=== PATIENT | male | born 1955 ===

== ENCOUNTER 2017-05-02 22:36 | Inpatient (IN) | payer OTHER ==
--- NOTE | 2017-05-02 22:41 | C.PDOC ---
History Of Present Illness Patient presents to the ER after having chest pressure pain while driving STABLE HAND. Denies SOB, nausea, or vomiting. 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 History/Exam Limitations: no limitations Onset/Duration Of Symptoms: Hrs Current Symptoms Are (Timing): Still Present Severity: Moderate Pain Scale Rating Of: 4 Quality: Pressure Associated Symptoms: denies: Nausea, Dyspnea Modifying Factors: None Exacerbating Factors: None Alleviating Factors: None Recent travel outside of the [place]: No Past Medical History Reviewed: Historical Data, Nursing Documentation, Vital Signs Vital Signs: Last Vital Signs Temp 97.8 F 05/02/17 23:00 Pulse 85 05/02/17 23:00 Resp 23 05/02/17 23:00 BP 150/90 05/02/17 23:00 Pulse Ox 97 05/03/17 00:38 - Medical History PMH: CAD, Hypercholesterolemia Surgical History: CABG - [facility] Procedures CORONAR ARTERIOGR-2 CATH (01/01/14) LEFT HEART CARDIAC CATH (01/01/14) LT HEART ANGIOCARDIOGRAM (01/01/14) Family History: States: No Known Family Hx - Social History Hx Tobacco Use: Yes (stop 1 wk ago due to SOB and pain) Hx Alcohol Use: No Hx Substance Use: No Review Of Systems Constitutional: Negative for: Fever, Chills Eyes: Negative for: Redness ENT: Negative for: Throat Pain Cardiovascular: Positive for: Chest Pain Respiratory: Negative for: Shortness of Breath Gastrointestinal: Negative for: Nausea, Vomiting Genitourinary: Negative for: Dysuria Musculoskeletal: Negative for: Back Pain Skin: Negative for: Rash Neurological: Negative for: Weakness Psych: Negative for: Anxiety Physical Exam - Physical Exam Appears: Non-toxic Skin: Warm, Dry Head: Normacephalic Eye(s): bilateral: Normal Inspection Oral Mucosa: Moist Neck: Trachea Midline, Supple Chest: No Tenderness, Other (CABG scar on mid chest) Cardiovascular: Rhythm Regular, No Murmur Respiratory: No Rales, No Rhonchi, No Wheezing Gastrointestinal/Abdominal: Soft, No Tenderness Back: No CVA Tenderness Extremity: Normal ROM Extremity: Bilateral: Atraumatic, Normal Color And Temperature Pulses: Left Dorsalis Pedis: Normal, Right Dorsalis Pedis: Normal Neurological/Psych: Oriented x3, Normal Speech, Normal Cognition Gait: Steady ED Course And Treatment - Laboratory Results Result Diagrams: 05/02/17 22:56 05/02/17 22:56 ECG: Interpreted By Me, Viewed By Me ECG Rhythm: Sinus Rhythm (87), Nonspecific Changes O2 Sat by Pulse Oximetry: 97 Pulse Ox Interpretation: Normal - Radiology CXR: Interpreted by Me, Viewed By Me CXR Interpretation: Yes: Other (cabg). No: Infiltrates, Fracture, Pnemothorax Progress Note: cardiac work up, asa Disposition Discussed With Dr.: Roberta Rodriguez Comment: accepted the pt on his service and took over the care at 12:48 AM Doctor Will See Patient In The: Hospital Counseled Patient/Family Regarding: Studies Performed, Diagnosis - Disposition Disposition: HOSPITALIZED Disposition Time: 22:41 Condition: FAIR - POA Present On Arrival: Poor Glycemic Control - Clinical Impression Clinical Impression: Chest pain - Scribe Statement The provider has reviewed the documentation as recorded by the Scribe Ricardo Stratton All medical record entries made by the Scribe were at my direction and personally dictated by me. I have reviewed the chart and agree that the record accurately reflects my personal performance of the history, physical exam, medical decision making, and the department course for this patient. I have also personally directed, reviewed, and agree with the discharge instructions and disposition. Decision To Admit - Pt Status Changed To: Hospital Disposition Of: Inpatient - Admit Certification Admit to Inpatient:: After my assessment, the patient will require hospitalization for at least two midnights. This is because of the severity of symptoms shown, intensity of services needed, and/or the medical risk in this patient being treated as an outpatient. - InPatient: Physician Admission Certification: I certify that this patient requires 2 or more midnights of care for the following reason:: After my assessment, the patient will require hospitalization for at least two midnights. This is because of the severity of symptoms shown, intensity of services needed, and/or the medical risk in this patient being treated as an outpatient. - . Bed Request Type: Telemetry Admitting Physician: Roberta Rodriguez Patient Diagnosis: Chest pain
[2017-05-02] MEDS ORDERED: Aspirin 325 mg EC Tablets PO STA (22:46)
[2017-05-02] MEDS ORDERED: Aspirin 325 mg EC Tablets PO ONE (22:59)
[2017-05-02 23:02] VITALS: BMI 34.9
[2017-05-02 23:02] LABS: BASO % 0.8 % (0.0-2.0); EOS # 0.2 K/uL (0.0-0.7); EOS % 2.7 % (0.0-4.0); HEMOGLOBIN 14.1 g/dL (12.0-18.0); LYMPH # 3.1 K/uL (1.0-4.3); LYMPH % 50.3 % (20.0-40.0); MEAN CELL VOLUME 83.4 fL (80.0-94.0); MEAN CORPUSCULAR HEMOGLOBIN 28.5 pg (27.0-31.0); MEAN CORPUSCULAR HGB CONC 34.1 g/dL (33.0-37.0); MEAN PLATELET VOLUME 8.4 fL (7.2-11.7); MONO # 0.4 K/uL (0.0-0.8); MONO % 6.8 % (0.0-10.0); NEUT # 2.4 K/uL (1.8-7.0); NEUT % 39.4 % (50.0-75.0); RBC 4.94 Mil/uL (4.40-5.90); RED CELL DISTRIBUTION WIDTH 13.3 % (11.5-14.5); WHITE BLOOD COUNT 6.1 K/uL (4.8-10.8)
[2017-05-02 23:07] LABS: ALBUMIN 3.8 g/dL (3.5-5.0)
[2017-05-02 23:08] LABS: INR 1.1; PROTHROMBIN TIME 12.8 SECONDS (9.7-12.2)
[2017-05-02 23:10] LABS: ALB/GLOB RATIO 1.2 (1.0-2.1); AST/SGOT 21 U/L (17-59); BLOOD UREA NITROGEN 14 mg/dL (9-20); GFR AFRICAN-AMERICAN > 60; GFR NON-AFRICAN AMERICAN > 60
[2017-05-02 23:11] LABS: ALT/SGPT 32 U/L (21-72); CALCIUM 9.4 mg/dl (8.6-10.4)
[2017-05-02 23:19] LABS: B-TYPE NATRIURETIC PEPTIDE 49.6 pg/mL (0-900)
[2017-05-03 08:47] LABS: CK-MB 1.11 ng/mL (0.0-3.38)
[2017-05-03] MEDS: Enoxaparin 40 mg Syringe SC SCH (09:38)
[2017-05-03] MEDS: Pantoprazole 40 mg EC Tab PO SCH (09:38)
[2017-05-03] MEDS ORDERED: LISINOPRIL 2.5 MG PO SCH (10:00)
--- NOTE | 2017-05-03 10:53 | RAD ---
PROCEDURE: CHEST RADIOGRAPH, 1 VIEW HISTORY: Chest pain COMPARISON: 12/31/2013 FINDINGS: LUNGS: There is mild pulmonary venous congestion. PLEURA: No pneumothorax or pleural fluid seen. CARDIOVASCULAR: The heart is normal in size. Status post CABG. OSSEOUS STRUCTURES: No significant abnormalities. VISUALIZED UPPER ABDOMEN: Normal. OTHER FINDINGS: None. IMPRESSION: No active pulmonary disease.
--- NOTE | 2017-05-03 12:38 | CP.PCM.HP ---
Past Patient History - Past Medical History & Family History Past Medical History?: Yes - Past Social History Smoking Status: Current Some Days Smoker - CARDIAC Hx Cardiac Disorders: Yes Hx Hypercholesterolemia: Yes Hx Hypertension: Yes Other/Comment: Open Heart Surgery; Valve Replacement; Coronary artery bypass graft; Cardiac Cath. - PULMONARY Hx Respiratory Disorders: No - NEUROLOGICAL Hx Neurological Disorder: No - HEENT Hx HEENT Problems: No - RENAL Hx Chronic Kidney Disease: No - ENDOCRINE/METABOLIC Hx Endocrine Disorders: Yes Hx Diabetes Mellitus Type 1: Yes - HEMATOLOGICAL/ONCOLOGICAL Hx Blood Disorders: No - INTEGUMENTARY Hx Dermatological Problems: No - MUSCULOSKELETAL/RHEUMATOLOGICAL Hx Musculoskeletal Disorders: No Hx Falls: No - GASTROINTESTINAL Other/Comment: Unintended Weight Loss - GENITOURINARY/GYNECOLOGICAL Hx Genitourinary Disorders: No - PSYCHIATRIC Hx Psychophysiologic Disorder: No Hx Substance Use: No - SURGICAL HISTORY Hx Surgeries: Yes Hx Cardiac Catheterization: Yes Hx Coronary Artery Bypass Graft: Yes Hx Open Heart Surgery: Yes Hx Valve Replacement: Yes - ANESTHESIA Hx Anesthesia: Yes Hx Anesthesia Reactions: No Hx Malignant Hyperthermia: No Meds Allergies/Adverse Reactions: Allergies Allergy/AdvReac Type Severity Reaction Status Date / Time No Known Allergies Allergy Verified 05/02/17 23:05 Physical Exam - Constitutional Appears: Well - Head Exam Head Exam: ATRAUMATIC, NORMAL INSPECTION, NORMOCEPHALIC - Eye Exam Eye Exam: EOMI, Normal appearance, PERRL Pupil Exam: NORMAL ACCOMODATION, PERRL - ENT Exam ENT Exam: Mucous Membranes Moist, Normal Exam - Neck Exam Neck exam: Positive for: Normal Inspection - Respiratory Exam Respiratory Exam: Decreased Breath Sounds - Cardiovascular Exam Cardiovascular Exam: REGULAR RHYTHM, +S1, +S2 - GI/Abdominal Exam GI & Abdominal Exam: Diminished Bowel Sounds, Soft - Rectal Exam Rectal Exam: Deferred Results - Vital Signs Recent Vital Signs: Last Vital Signs Temp 98.2 F 05/03/17 09:03 Pulse 72 05/03/17 09:03 Resp 20 05/03/17 09:03 BP 124/69 05/03/17 09:03 Pulse Ox 96 05/03/17 09:03 - Labs Result Diagrams: 05/02/17 22:56 05/02/17 22:56 Labs: Laboratory Results - last 24 hr 05/03/17 05/03/17 07:59 11:50 POC Glucose (mg/dL) 114 H Total Creatine Kinase 107 CK-MB (Mass) 1.11 Troponin I, Quant < 0.0120
[2017-05-03 18:43] LABS: URINE BILIRUBIN NEGATIVE (NEGATIVE); URINE BLOOD 1+ (NEGATIVE); URINE CLARITY Clear (Clear); URINE COLOR Straw (YELLOW); URINE GLUCOSE (UA) NORMAL (Normal); URINE LEUKOCYTE ESTERASE NEG Leu/uL (Negative); URINE NITRATE NEGATIVE (NEGATIVE); URINE PROTEIN NEGATIVE (NEGATIVE); URINE UROBILINOGEN NORMAL mg/dL (0.2-1.0)
--- NOTE | 2017-05-03 22:53 | CP.PCM.CON ---
Past Patient History - Past Medical History & Family History Past Medical History?: Yes - Past Social History Smoking Status: Current Some Days Smoker - CARDIAC Hx Cardiac Disorders: Yes Hx Hypercholesterolemia: Yes Hx Hypertension: Yes Other/Comment: Open Heart Surgery; Valve Replacement; Coronary artery bypass graft; Cardiac Cath. - PULMONARY Hx Respiratory Disorders: No - NEUROLOGICAL Hx Neurological Disorder: No - HEENT Hx HEENT Problems: No - RENAL Hx Chronic Kidney Disease: No - ENDOCRINE/METABOLIC Hx Endocrine Disorders: Yes Hx Diabetes Mellitus Type 1: Yes - HEMATOLOGICAL/ONCOLOGICAL Hx Blood Disorders: No - INTEGUMENTARY Hx Dermatological Problems: No - MUSCULOSKELETAL/RHEUMATOLOGICAL Hx Musculoskeletal Disorders: No Hx Falls: No - GASTROINTESTINAL Other/Comment: Unintended Weight Loss - GENITOURINARY/GYNECOLOGICAL Hx Genitourinary Disorders: No - PSYCHIATRIC Hx Psychophysiologic Disorder: No Hx Substance Use: No - SURGICAL HISTORY Hx Surgeries: Yes Hx Cardiac Catheterization: Yes Hx Coronary Artery Bypass Graft: Yes Hx Open Heart Surgery: Yes Hx Valve Replacement: Yes - ANESTHESIA Hx Anesthesia: Yes Hx Anesthesia Reactions: No Hx Malignant Hyperthermia: No Meds Allergies/Adverse Reactions: Allergies Allergy/AdvReac Type Severity Reaction Status Date / Time No Known Allergies Allergy Verified 05/02/17 23:05 - Medications Medications: Current Medications Aspirin (Aspirin Chewable) 81 mg PO DAILY [facility] Last Admin: 05/03/17 10:45 Dose: 81 mg Clopidogrel Bisulfate (Plavix) 75 mg PO DAILY [facility] Last Admin: 05/03/17 09:38 Dose: 75 mg Enoxaparin Sodium (Lovenox) 40 mg SC DAILY [facility] Last Admin: 05/03/17 09:38 Dose: 40 mg Lisinopril (Zestril) 2.5 mg PO DAILY [facility] Last Admin: 05/03/17 10:45 Dose: 2.5 mg Pantoprazole Sodium (Protonix Ec Tab) 40 mg PO DAILY [facility] Last Admin: 05/03/17 09:38 Dose: 40 mg Rosuvastatin Calcium (Crestor) 10 mg PO HS [facility] Last Admin: 05/03/17 21:41 Dose: 10 mg Results - Vital Signs Recent Vital Signs: Last Vital Signs Temp 97.7 F 05/03/17 17:36 Pulse 77 05/03/17 17:36 Resp 20 05/03/17 17:36 BP 149/82 05/03/17 17:36 Pulse Ox 97 05/03/17 17:36 - Labs Result Diagrams: 05/02/17 22:56 05/02/17 22:56 Labs: Laboratory Results - last 24 hr 05/03/17 05/03/17 05/03/17 07:59 11:50 16:54 POC Glucose (mg/dL) 114 H 122 H Total Creatine Kinase 107 CK-MB (Mass) 1.11 Troponin I, Quant < 0.0120 Urine Color Urine Clarity Urine pH Ur Specific [place] Urine Protein Urine Glucose (UA) Urine Ketones Urine Blood Urine Nitrate Urine Bilirubin Urine Urobilinogen Ur Leukocyte Esterase Urine WBC (Auto) Urine RBC (Auto) 05/03/17 05/03/17 05/03/17 17:23 18:35 21:48 POC Glucose (mg/dL) 138 H Total Creatine Kinase 80 CK-MB (Mass) 0.80 Troponin I, Quant < 0.0120 Urine Color Straw Urine Clarity Clear Urine pH 6.0 Ur Specific [place] 1.006 Urine Protein Negative Urine Glucose (UA) Normal Urine Ketones Negative Urine Blood 1+ H Urine Nitrate Negative Urine Bilirubin Negative Urine Urobilinogen Normal Ur Leukocyte Esterase Neg Urine WBC (Auto) < 1 Urine RBC (Auto) < 1
[2017-05-04 07:32] LABS: CK-MB 0.82 ng/mL (0.0-3.38)
[2017-05-04 08:20] VITALS: PULSE 68
[2017-05-04] MEDS: Enoxaparin 40 mg Syringe SC SCH (09:10)
[2017-05-04] MEDS: Pantoprazole 40 mg EC Tab PO SCH (09:10)
--- NOTE | 2017-05-04 10:26 | CP.PCM.PN ---
Subjective - Date & Time of Evaluation Date of Evaluation: 05/04/17 Time of Evaluation: 10:25 Objective - Vital Signs/Intake and Output Vital Signs (last 24 hours): Temp Pulse Resp BP Pulse Ox 97.8 F 68 20 129/76 97 05/04/17 07:18 05/04/17 07:18 05/04/17 07:18 05/04/17 07:18 05/04/17 07:18 Intake and Output: 05/04/17 05/04/17 06:59 18:59 Intake Total 0 Balance 0 - Medications Medications: Current Medications Aspirin (Aspirin Chewable) 81 mg PO DAILY [facility] Last Admin: 05/04/17 09:10 Dose: 81 mg Clopidogrel Bisulfate (Plavix) 75 mg PO DAILY [facility] Last Admin: 05/04/17 09:10 Dose: 75 mg Enoxaparin Sodium (Lovenox) 40 mg SC DAILY [facility] Last Admin: 05/04/17 09:10 Dose: 40 mg Lisinopril (Zestril) 2.5 mg PO DAILY [facility] Last Admin: 05/04/17 09:10 Dose: 2.5 mg Pantoprazole Sodium (Protonix Ec Tab) 40 mg PO DAILY [facility] Last Admin: 05/04/17 09:10 Dose: 40 mg Rosuvastatin Calcium (Crestor) 10 mg PO HS [facility] Last Admin: 05/03/17 21:41 Dose: 10 mg - Labs Labs: PT 12.8 SECONDS (9.7-12.2) H 05/02/17 22:56 INR 1.1 05/02/17 22:56 APTT 33 SECONDS (21-34) 05/02/17 22:56
[2017-05-04 16:05] VITALS: BP 122/70; RESP 18; TEMP 97.6; O2SAT 99
--- NOTE | 2017-05-04 16:55 | CP.PCM.PN ---
Subjective - Date & Time of Evaluation Date of Evaluation: 05/04/17 Time of Evaluation: 16:55 - Subjective Subjective: PT SEEN B YDR. Enrrique ANGUIANO AND CLEARED FOR D/C HOME TODAY. 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 JANE WHO RECOMMENDS AN OUTPATIENT CARDIAC CATH TO BE DONE, BUT OF TODAY PT CAN GO HOME. 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 DENISE Peña) IN [place] AT 1000AM. DISCUSSED ALL MEDS, D/C AND F/U INFO WITH PT AT LENGTH AND WITH THE USE OF THE TRANSLATION COMPUTER SYSTEM (KAITARA TARAKA [employer] [facility]). FAMILY TO P/U PT. NO FURTHER ORDERS. Objective - Vital Signs/Intake and Output Vital Signs (last 24 hours): Temp Pulse Resp BP Pulse Ox 97.6 F 68 18 122/70 99 05/04/17 15:45 05/04/17 15:45 05/04/17 15:45 05/04/17 15:45 05/04/17 15:45 Intake and Output: 05/04/17 05/04/17 06:59 18:59 Intake Total 0 350 Balance 0 350 - Medications Medications: Current Medications Aspirin (Aspirin Chewable) 81 mg PO DAILY [facility] Last Admin: 05/04/17 09:10 Dose: 81 mg Clopidogrel Bisulfate (Plavix) 75 mg PO DAILY [facility] Last Admin: 05/04/17 09:10 Dose: 75 mg Enoxaparin Sodium (Lovenox) 40 mg SC DAILY [facility] Last Admin: 05/04/17 09:10 Dose: 40 mg Lisinopril (Zestril) 2.5 mg PO DAILY [facility] Last Admin: 05/04/17 09:10 Dose: 2.5 mg Pantoprazole Sodium (Protonix Ec Tab) 40 mg PO DAILY [facility] Last Admin: 05/04/17 09:10 Dose: 40 mg Rosuvastatin Calcium (Crestor) 10 mg PO HS [facility] Last Admin: 05/03/17 21:41 Dose: 10 mg - Labs Labs: PT 12.8 SECONDS (9.7-12.2) H 05/02/17 22:56 INR 1.1 05/02/17 22:56 APTT 33 SECONDS (21-34) 05/02/17 22:56
--- NOTE | 2017-05-04 18:29 | CP.PCM.PN ---
Subjective - Date & Time of Evaluation Date of Evaluation: 05/04/17 Time of Evaluation: 13:00 - Subjective Subjective: clinically same Objective - Vital Signs/Intake and Output Vital Signs (last 24 hours): Temp Pulse Resp BP Pulse Ox 97.6 F 68 18 122/70 99 05/04/17 15:45 05/04/17 15:45 05/04/17 15:45 05/04/17 15:45 05/04/17 15:45 Intake and Output: 05/04/17 05/04/17 06:59 18:59 Intake Total 0 350 Balance 0 350 - Labs Labs: PT 12.8 SECONDS (9.7-12.2) H 05/02/17 22:56 INR 1.1 05/02/17 22:56 APTT 33 SECONDS (21-34) 05/02/17 22:56 - Constitutional Appears: Well - Head Exam Head Exam: ATRAUMATIC, NORMAL INSPECTION, NORMOCEPHALIC - Eye Exam Eye Exam: EOMI, Normal appearance, PERRL Pupil Exam: NORMAL ACCOMODATION, PERRL - ENT Exam ENT Exam: Mucous Membranes Moist, Normal Exam - Neck Exam Neck Exam: Full ROM, Normal Inspection. absent: Lymphadenopathy - Respiratory Exam Respiratory Exam: Decreased Breath Sounds - Cardiovascular Exam Cardiovascular Exam: REGULAR RHYTHM, +S1, +S2 - GI/Abdominal Exam GI & Abdominal Exam: Soft, Diminished Bowel Sounds - Rectal Exam Rectal Exam: Deferred
--- NOTE | 2017-05-05 10:05 | CARD ---
APPROVED REPORT EXAM: Two-dimensional and M-mode echocardiogram with Doppler and color Doppler. Other Information Quality : GoodRhythm : NSR INDICATION Chest Pain Surgery/Intervention CABG: RISK FACTORS Hypertension Diabetes M-Mode DIMENSIONS RVDd1.44 (2.1-3.2cm)Left Atrium (MM)5.27 (2.5-4.0cm) IVSd0.96 (0.7-1.1cm)Aortic Root2.80 (2.2-3.7cm) LVDd5.35 (4.0-5.6cm)Aortic Cusp Exc.1.95 (1.5-2.0cm) PWd1.07 (0.7-1.1cm)FS (%) 36 % LVDs3.43 (2.0-3.8cm)LVEF (%)65 (>50%) Aortic Valve AoV Peak Kvcljjjn655.7cm/Sherice Peak GR.5mmHg Mitral Valve MV E Xbluxqpd51.0cm/sMV A Ywjzoykc85.6cm/sE/A ratio0.9 TDI E/Lateral E'0.0E/Medial E'0.0 Tricuspid Valve TR Peak [id number]/sTR Peak Gr.[id number] <Conclusion> Left ventricle: thickness: normal; size: normal; overall ejection fraction: 65%: diastolic filling pressures: normal Mitral valve: annulus: normal: leaflets: normal: excursion: normal; no significant trans-mitral gradient: no significant incompetence: left atrium: dilated Aortic valve: leaflets: mild calcific thickening: excursion: normal; no significant trans-aortic gradient: No significant incompetence: aortic root: normal Right sided Structures: Pulmonary valve: normal; no significant incompetence; Tricuspid valve: normal;mild incompetence: Intra-cardiac hemodynamics: pulmonary systolic pressures:32 mmHg; central venous pressures: normal No pericardial effusion
--- NOTE | 2017-05-05 10:09 | CARD ---
APPROVED REPORT Protocol: PHUONG Test Type: Treadmill Stress Test Test Indications: CHEST PAIN Medications: LIST SCAN Medical History: CHEST PAIN Target HR: 159 bpm Resting ECG: normal Resting Heart Rate: 87 bpm Resting Blood Pressure: 122/60mmHg submaximum (85%): 135 bpm TEST SUMMARY [id number]:01..1.082/.0. PRETESTWARM-[id number]/60.0. EXERCISESTAGE [id number]/60.0. [id number]:[id number]/.0. POST EXERCISE Reason for Termination: Chest discomfort Target HR: No Max HR: 96 bpm 60% of Maximum Predicted HR: 159 bpm Exercise duration: 01:53 min:sec, 1 Stage Exercise capacity: 4.6METs Max Blood Pressure: 122/60mmHg Blood Pressure response to exercise: normal resting BP - appropriate response Heart Rate response to exercise: sub-optimal secondary to other Chest Pain: Yes, limiting Angina index: 2 Arrhythmia: No, none ST Change: No, none Deviation: 0 mm INTERPRETATION Stress EKG Conclusion: Severely decreased exercise tolerance , will need further ischemic evaluation with nuclear stress test
--- NOTE | 2017-05-06 18:19 | CARD ---
APPROVED REPORT EKG Measurement Heart [id number] <Conclusion> Normal sinus rhythm Normal ECG
== END 2017-05-04 17:05 | disposition home or self-care (01) | DRG 133 ==
LOC: C.ER 22:36 → C.6T 05-03 00:46
PROVIDERS: ADMIT Internal Medicine Nephrology; ATTEND Internal Medicine Nephrology
DX: I25.10 Atherosclerotic heart disease of native coronary artery without angina pectoris (principal); I10 Essential (primary) hypertension; F17.210 Nicotine dependence, cigarettes, uncomplicated; Z95.1 Presence of aortocoronary bypass graft; E78.00 Pure hypercholesterolemia, unspecified; Z95.2 Presence of prosthetic heart valve; E10.9 Type 1 diabetes mellitus without complications; R63.4 Abnormal weight loss

== ENCOUNTER 2018-12-27 18:40 | Observation (INO) | payer MEDICAID, OTHER ==
[2018-12-27 18:40] VITALS: BMI 34.9
[2018-12-27] MEDS ORDERED: Sodium Chloride 0.9% 500 ML IV ONE (19:43)
--- NOTE | 2018-12-27 20:01 | C.PDOC ---
History Of Present Illness 63 year old male, whose past medical history includes HTN, CAD s/p CABG, presents to the ED for evaluation of chest pain, dizziness, and shortness of breath that has been worsening over the last few days. Patient describes the dizziness as a room-spinning sensation and states his chest pain feels sharp. He also complains of mild cough. Additional information limited secondary to patient being a poor historian. Time Seen by Provider: 12/27/18 19:30 Chief Complaint (Nursing): Chest Pain History Per: Patient History/Exam Limitations: other Current Symptoms Are (Timing): Worse Quality: "Pain" Additional History Per: Patient Past Medical History Reviewed: Historical Data, Nursing Documentation, Vital Signs Vital Signs: Last Vital Signs Temp 100.4 F H 12/27/18 18:59 Pulse 103 H 12/27/18 18:59 Resp 19 12/27/18 18:59 BP 149/85 12/27/18 18:59 Pulse Ox 98 12/27/18 18:59 - Medical History PMH: CAD, HTN, Hypercholesterolemia Denies: Chronic Kidney Disease Surgical History: CABG - [facility] Procedures CORONAR ARTERIOGR-2 CATH (01/01/14) LEFT HEART CARDIAC CATH (01/01/14) LT HEART ANGIOCARDIOGRAM (01/01/14) Family History: States: Unknown Family Hx - Social History Hx Tobacco Use: Yes (stop 1 wk ago due to SOB and pain) Hx Alcohol Use: No Hx Substance Use: No - Immunization History Hx Tetanus Toxoid Vaccination: (UNKNOWN) Hx Influenza Vaccination: (UNKNOWN) Hx Pneumococcal Vaccination: (UNKNOWN) Review Of Systems Cardiovascular: Positive for: Chest Pain Respiratory: Positive for: Cough, Shortness of Breath, Sputum (green ) Physical Exam - Physical Exam Appears: Non-toxic, No Acute Distress Skin: Normal Color, Warm, Dry Head: Atraumatic, Normacephalic Eye(s): bilateral: Normal Inspection Oral Mucosa: Moist Neck: Supple Chest: Symmetrical, No Deformity, No Tenderness Cardiovascular: Rhythm Regular, No Murmur Respiratory: Normal Breath Sounds, No Rales, No Rhonchi, No Wheezing Extremity: Normal ROM, Capillary Refill (less than 2 seconds) Neurological/Psych: Oriented x3, Normal Speech, Normal Cognition Gait: Steady ED Course And Treatment - Laboratory Results Result Diagrams: 12/28/18 03:38 12/28/18 03:38 ECG: Interpreted By Me, Viewed By Me ECG Rhythm: Sinus Tachycardia Interpretation Of ECG: Sinus Tachycardia at rate 103bpm. No ST/T wave changes. Rate From EC O2 Sat by Pulse Oximetry: 98 (on RA ) Pulse Ox Interpretation: Normal Medical Decision Making Medical Decision Making: cp ro acs. temp 100.4 on arrival ro infectiou s etiology Progress: Bloodwork, urinalysis, CXR, EKG, Flu swab ordered and reviewed. Antivert PO, Tylenol PO, and IV Fluids given. labs dimer neg. ct neg. will obs as pt with known cad. defer antbiiotics to inpt team. Disposition - Disposition Disposition: HOSPITALIZED Disposition Time: 16:35 Condition: STABLE - Clinical Impression Clinical Impression: Chest pain, Dizziness - Scribe Statement The provider has reviewed the documentation as recorded by the Scribe (Bren Rodriguez) Provider Attestation: All medical record entries made by the Scribe were at my direction and personally dictated by me. I have reviewed the chart and agree that the record accurately reflects my personal performance of the history, physical exam, medical decision making, and the department course for this patient. I have also personally directed, reviewed, and agree with the discharge instructions and disposition.
[2018-12-27] MEDS ORDERED: Sodium Chloride 0.9% 1,000 ML ONE (20:11)
[2018-12-27 20:29] LABS: BASO # 0.1 K/uL (0.0-0.2); BASO % 0.5 % (0.0-2.0); EOS # 0.1 K/uL (0.0-0.7); HEMOGLOBIN 13.5 g/dL (12.0-18.0); LYMPH # 2.7 K/uL (1.0-4.3); LYMPH % 26.2 % (20.0-40.0); MEAN CELL VOLUME 83.8 fL (80.0-94.0); MEAN CORPUSCULAR HEMOGLOBIN 28.3 pg (27.0-31.0); MEAN CORPUSCULAR HGB CONC 33.8 g/dL (33.0-37.0); MEAN PLATELET VOLUME 8.7 fL (7.2-11.7); MONO # 1.2 K/uL (0.0-0.8); MONO % 11.9 % (0.0-10.0); NEUT # 6.1 K/uL (1.8-7.0); NEUT % 60.4 % (50.0-75.0); RBC 4.75 Mil/uL (4.40-5.90); RED CELL DISTRIBUTION WIDTH 14.6 % (11.5-14.5); WHITE BLOOD COUNT 10.1 K/uL (4.8-10.8)
[2018-12-27 20:37] LABS: INR 1.2; PROTHROMBIN TIME 12.6 SECONDS (9.7-12.2)
[2018-12-27 20:45] LABS: ALB/GLOB RATIO 2.3 (1.0-2.1); ALT/SGPT 11 U/L (21-72); AST/SGOT 20 U/L (17-59); BLOOD UREA NITROGEN 15 mg/dL (9-20); CALCIUM 9.6 mg/dl (8.6-10.4); GFR NON-AFRICAN AMERICAN > 60
[2018-12-27 20:55] LABS: B-TYPE NATRIURETIC PEPTIDE 78.5 pg/mL (0-900)
[2018-12-27 21:14] LABS: URINE BILIRUBIN NEGATIVE (NEGATIVE); URINE BLOOD NEGATIVE (NEGATIVE); URINE CLARITY Clear (Clear); URINE COLOR Yellow (YELLOW); URINE GLUCOSE (UA) 3+ mg/dL (Normal); URINE LEUKOCYTE ESTERASE NEG Leu/uL (Negative); URINE PROTEIN NEGATIVE (NEGATIVE); URINE UROBILINOGEN NORMAL mg/dL (0.2-1.0)
--- NOTE | 2018-12-28 02:16 | CP.PCM.HP ---
<Pepper Sahni P - Last Filed: 12/28/18 06:46> History of Present Illness - History of Present Illness History of Present Illness: Medicine H&P for Dr. Love HPI: 63 year old Lithuanian speaking male with PMHx of CAD s/p CABG 2013, HTN, HLD, DM who presents to ED for severe dizziness/room spinning sensation for the past 2 days. Dizziness came on suddenly and has been worsening. Dizziness is so severe that he has difficulty walking. Nothing makes the dizziness better or worse. Patient reports sharp left sided chest pain (non-radiating) and shortness of breath that started with the dizziness, but have since resolved. He also states he's had a cough with green sputum and myalgias for the last few days. Patient denies fever, chills, nausea, vomiting, rhinorrhea, ringing in the ears, focal weakness, numbness, tingling, slurred speech or confusion. PMHx: CAD s/p CABG 2013, HTN, HLD, DM PSHx: CABG 2013 Meds: See med list Allergies: NKDA FamHx: Parents-DM SocHx: Former smoker- 2ppd for "many years", denies illicit drugs and alcohol. Works at [employer]. Lives with his family. Review of Systems: -Gen: No fever, No chills, No headache, No lethargy, No weakness. -HEENT: + dizziness, No change in vision, No change in hearing, No sore throat, No dysphagia, No nasal congestion, No mucous. -Cardio: +chest pain, No palpitations, No lower extremity edema, No orthopnea. -Resp: + cough, No dyspnea, No hemoptysis, No wheezing, No pain on inspiration. -GI: No abdominal pain, No nausea/vomiting, No diarrhea/constipation, No hematochezia, No hematemesis. -: No dysuria, No urinary freq, No incontinence, No hematuria, No change in urinary stream. -MSK: No back pain, No muscle weakness, No radiating pain. -Skin: No itching, No rash, No lesions. -Neuro: +dizziness, No confusion, No numbness, No tingling, No focal weakness, No radicular pain, No syncope. -Psych: No anxiety, No depression, No H/I, No S/I, No hallucinations. Present on Admission - Present on Admission Any Indicators Present on Admission: No Past Patient History - Past Medical History & Family History Past Medical History?: Yes - Past Social History Smoking Status: Current Some Days Smoker - CARDIAC Hx Hypercholesterolemia: Yes Hx Hypertension: Yes - PULMONARY Hx Respiratory Disorders: No - NEUROLOGICAL Hx Neurological Disorder: No - HEENT Hx HEENT Problems: No - RENAL Hx Chronic Kidney Disease: No - ENDOCRINE/METABOLIC Hx Endocrine Disorders: Yes Hx Diabetes Mellitus Type 2: Yes - HEMATOLOGICAL/ONCOLOGICAL Hx Blood Disorders: No - INTEGUMENTARY Hx Dermatological Problems: No - MUSCULOSKELETAL/RHEUMATOLOGICAL Hx Musculoskeletal Disorders: No Hx Falls: No - GASTROINTESTINAL Other/Comment: Unintended Weight Loss - GENITOURINARY/GYNECOLOGICAL Hx Genitourinary Disorders: No - PSYCHIATRIC Hx Substance Use: No - SURGICAL HISTORY Hx Coronary Artery Bypass Graft: Yes - ANESTHESIA Hx Anesthesia: Yes Hx Anesthesia Reactions: No Hx Malignant Hyperthermia: No Meds Allergies/Adverse Reactions: Allergies Allergy/AdvReac Type Severity Reaction Status Date / Time No Known Allergies Allergy Verified 12/27/18 19:06 Physical Exam - Constitutional Appears: Non-toxic, No Acute Distress - Head Exam Head Exam: ATRAUMATIC, NORMOCEPHALIC - Eye Exam Eye Exam: EOMI, Normal appearance, PERRL. absent: Nystagmus Additional comments: Dizziness with eye movements - ENT Exam ENT Exam: Mucous Membranes Moist - Neck Exam Neck exam: Positive for: Full Rom, Normal Inspection - Respiratory Exam Respiratory Exam: Clear to Auscultation Bilateral. absent: Decreased Breath Sounds, Rhonchi, Wheezes - Cardiovascular Exam Cardiovascular Exam: REGULAR RHYTHM, +S1, +S2 - GI/Abdominal Exam GI & Abdominal Exam: Normal Bowel Sounds, Soft. absent: Distended, Guarding, Rebound, Rigid, Tenderness - Extremities Exam Extremities exam: Positive for: calf tenderness, full ROM, normal inspection, pedal pulses present. Negative for: pedal edema, tenderness - Neurological Exam Neurological exam: Alert, CN II-XII Intact, Oriented x3 Additional comments: 5/5 muscle strength in all extremities, sensation intact, no dysmetria. - Psychiatric Exam Psychiatric exam: Normal Affect, Normal Mood - Skin Skin Exam: Dry, Normal Color, Warm Results - Vital Signs Recent Vital Signs: Last Vital Signs Temp 98.2 F 12/28/18 01:47 Pulse 77 12/28/18 01:47 Resp 18 12/28/18 01:47 BP 108/75 12/28/18 01:47 Pulse Ox 96 12/28/18 01:47 - Labs Result Diagrams: 12/28/18 03:38 12/28/18 03:38 Labs: Laboratory Results - last 24 hr 12/27/18 12/27/18 12/27/18 19:02 20:22 20:22 WBC 10.1 D RBC 4.75 Hgb 13.5 Hct 39.8 MCV 83.8 MCH 28.3 MCHC 33.8 RDW 14.6 H Plt Count 226 MPV 8.7 Neut % (Auto) 60.4 Lymph % (Auto) 26.2 [place] % (Auto) 11.9 H Eos % (Auto) 1.0 Baso % (Auto) 0.5 Neut # (Auto) 6.1 Lymph # (Auto) 2.7 [place] # (Auto) 1.2 H Eos # (Auto) 0.1 Baso # (Auto) 0.1 PT 12.6 H INR 1.2 APTT 34 D-Dimer, Quantitative Sodium Potassium Chloride Carbon Dioxide Anion Gap BUN Creatinine Est GFR ( Amer) Est GFR (Non-Af Amer) POC Glucose (mg/dL) 265 H Random Glucose Calcium Total Bilirubin AST ALT Alkaline Phosphatase Troponin I NT-Pro-B Natriuret Pep Total Protein Albumin Globulin Albumin/Globulin Ratio Urine Color Urine Clarity Urine pH Ur Specific [place] Urine Protein Urine Glucose (UA) Urine Ketones Urine Blood Urine Nitrate Urine Bilirubin Urine Urobilinogen Ur Leukocyte Esterase Urine WBC (Auto) Urine RBC (Auto) Influenza Typ A,B (EIA) 12/27/18 12/27/18 12/27/18 20:22 20:22 20:22 WBC RBC Hgb Hct MCV MCH MCHC RDW Plt Count MPV Neut % (Auto) Lymph % (Auto) [place] % (Auto) Eos % (Auto) Baso % (Auto) Neut # (Auto) Lymph # (Auto) [place] # (Auto) Eos # (Auto) Baso # (Auto) PT INR APTT D-Dimer, Quantitative 233 Sodium 132 Potassium 4.1 Chloride 99 Carbon Dioxide 24 Anion Gap 13 BUN 15 Creatinine 1.2 Est GFR ( Amer) > 60 Est GFR (Non-Af Amer) > 60 POC Glucose (mg/dL) Random Glucose 316 H D Calcium 9.6 Total Bilirubin 0.4 AST 20 ALT 11 L D Alkaline Phosphatase 50 Troponin I < 0.0120 NT-Pro-B Natriuret Pep 78.5 Total Protein 7.2 Albumin 5.0 D Globulin 2.2 Albumin/Globulin Ratio 2.3 H Urine Color Urine Clarity Urine pH Ur Specific [place] Urine Protein Urine Glucose (UA) Urine Ketones Urine Blood Urine Nitrate Urine Bilirubin Urine Urobilinogen Ur Leukocyte Esterase Urine WBC (Auto) Urine RBC (Auto) Influenza Typ A,B (EIA) Negative for flu a/b 12/27/18 21:02 WBC RBC Hgb Hct MCV MCH MCHC RDW Plt Count MPV Neut % (Auto) Lymph % (Auto) [place] % (Auto) Eos % (Auto) Baso % (Auto) Neut # (Auto) Lymph # (Auto) [place] # (Auto) Eos # (Auto) Baso # (Auto) PT INR APTT D-Dimer, Quantitative Sodium Potassium Chloride Carbon Dioxide Anion Gap BUN Creatinine Est GFR ( Amer) Est GFR (Non-Af Amer) POC Glucose (mg/dL) Random Glucose Calcium Total Bilirubin AST ALT Alkaline Phosphatase Troponin I NT-Pro-B Natriuret Pep Total Protein Albumin Globulin Albumin/Globulin Ratio Urine Color Yellow Urine Clarity Clear Urine pH 5.0 Ur Specific [place] 1.020 Urine Protein Negative Urine Glucose (UA) 3+ H Urine Ketones Negative Urine Blood Negative Urine Nitrate Negative Urine Bilirubin Negative Urine Urobilinogen Normal Ur Leukocyte Esterase Neg Urine WBC (Auto) 1 Urine RBC (Auto) 2 Influenza Typ A,B (EIA) Assessment & Plan - Assessment and Plan (Free Text) Assessment: 63 year old male with PMHx of CAD s/p CABG 2013, HTN, HLD, DM who presents to ED for severe dizziness/room spinning sensation and chest pain Plan: Chest pain rule out GA EKG-Sinus tachycardia ARVIN negative x2 f/u echo Echo 2017: EF 65% F/u TSH F/u Lipid panel F/u Hgb A1c Nitro sublingual PRN Asa 81mg Daily Crestor 10mg PO HS Dizziness CT head: No acute intracranial abnormality Antivert 25mg Q8H Cough Benzonatate 100mg PO TID PRN Tylenol 650mg Q6H PRN Hx of CAD with CABG Asa 81mg daily Plavix 75mg daily Isosorbide mononitrate 30mg daily Ranexa 500mg PO BID Crestor 10mg PO HS Hx HTN Carvedilol 3.125 BID Hx DM with neuropathy Jenuvia 25mg daily Metformin 1000mg BID Glipizide 4mg daily Lisinopril 2.5 mg daily gabapentin 300mg TID ASA 81mg Hx HLD Fenofibrate 145mg daily [place]-3 1g daily Crestor 10mg PO HS PPx GI ppx not indicated Plavix home med HHD Discussed with Dr. Kate Sahni, PGY-1 <Keyur Love - Last Filed: 12/28/18 18:58> Results - Vital Signs Recent Vital Signs: Last Vital Signs Temp 98.7 F 12/28/18 16:35 Pulse 89 12/28/18 16:35 Resp 20 12/28/18 16:35 BP 102/64 12/28/18 16:35 Pulse Ox 96 12/28/18 16:35 - Labs Result Diagrams: 12/28/18 03:38 12/28/18 03:38 Labs: Laboratory Results - last 24 hr 12/27/18 12/27/18 12/27/18 19:02 20:22 20:22 WBC 10.1 D RBC 4.75 Hgb 13.5 Hct 39.8 MCV 83.8 MCH 28.3 MCHC 33.8 RDW 14.6 H Plt Count 226 MPV 8.7 Neut % (Auto) 60.4 Lymph % (Auto) 26.2 [place] % (Auto) 11.9 H Eos % (Auto) 1.0 Baso % (Auto) 0.5 Neut # (Auto) 6.1 Lymph # (Auto) 2.7 [place] # (Auto) 1.2 H Eos # (Auto) 0.1 Baso # (Auto) 0.1 PT 12.6 H INR 1.2 APTT 34 D-Dimer, Quantitative Sodium Potassium Chloride Carbon Dioxide Anion Gap BUN Creatinine Est GFR ( Amer) Est GFR (Non-Af Amer) POC Glucose (mg/dL) 265 H Random Glucose Hemoglobin A1c Calcium Total Bilirubin AST ALT Alkaline Phosphatase Total Creatine Kinase CK-MB (Mass) Troponin I NT-Pro-B Natriuret Pep Total Protein Albumin Globulin Albumin/Globulin Ratio Triglycerides Cholesterol LDL Cholesterol Direct HDL Cholesterol Free T4 TSH 3rd Generation Urine Color Urine Clarity Urine pH Ur Specific [place] Urine Protein Urine Glucose (UA) Urine Ketones Urine Blood Urine Nitrate Urine Bilirubin Urine Urobilinogen Ur Leukocyte Esterase Urine WBC (Auto) Urine RBC (Auto) Influenza Typ A,B (EIA) 12/27/18 12/27/18 12/27/18 20:22 20:22 20:22 WBC RBC Hgb Hct MCV MCH MCHC RDW Plt Count MPV Neut % (Auto) Lymph % (Auto) [place] % (Auto) Eos % (Auto) Baso % (Auto) Neut # (Auto) Lymph # (Auto) [place] # (Auto) Eos # (Auto) Baso # (Auto) PT INR APTT D-Dimer, Quantitative 233 Sodium 132 Potassium 4.1 Chloride 99 Carbon Dioxide 24 Anion Gap 13 BUN 15 Creatinine 1.2 Est GFR ( Amer) > 60 Est GFR (Non-Af Amer) > 60 POC Glucose (mg/dL) Random Glucose 316 H D Hemoglobin A1c Calcium 9.6 Total Bilirubin 0.4 AST 20 ALT 11 L D Alkaline Phosphatase 50 Total Creatine Kinase CK-MB (Mass) Troponin I < 0.0120 NT-Pro-B Natriuret Pep 78.5 Total Protein 7.2 Albumin 5.0 D Globulin 2.2 Albumin/Globulin Ratio 2.3 H Triglycerides Cholesterol LDL Cholesterol Direct HDL Cholesterol Free T4 TSH 3rd Generation Urine Color Urine Clarity Urine pH Ur Specific [place] Urine Protein Urine Glucose (UA) Urine Ketones Urine Blood Urine Nitrate Urine Bilirubin Urine Urobilinogen Ur Leukocyte Esterase Urine WBC (Auto) Urine RBC (Auto) Influenza Typ A,B (EIA) Negative for flu a/b 12/27/18 12/28/18 12/28/18 21:02 03:38 03:38 WBC 7.4 RBC 4.69 Hgb 12.9 Hct 39.1 MCV 83.3 MCH 27.5 MCHC 33.0 RDW 14.5 Plt Count 205 MPV 8.5 Neut % (Auto) 53.5 Lymph % (Auto) 31.5 [place] % (Auto) 11.3 H Eos % (Auto) 1.8 Baso % (Auto) 1.9 Neut # (Auto) 4.0 Lymph # (Auto) 2.3 [place] # (Auto) 0.8 Eos # (Auto) 0.1 Baso # (Auto) 0.1 PT INR APTT D-Dimer, Quantitative Sodium Potassium Chloride Carbon Dioxide Anion Gap BUN Creatinine Est GFR ( Amer) Est GFR (Non-Af Amer) POC Glucose (mg/dL) Random Glucose Hemoglobin A1c Calcium Total Bilirubin AST ALT Alkaline Phosphatase Total Creatine Kinase 73 CK-MB (Mass) 0.53 Troponin I < 0.0120 NT-Pro-B Natriuret Pep Total Protein Albumin Globulin Albumin/Globulin Ratio Triglycerides Cholesterol LDL Cholesterol Direct HDL Cholesterol Free T4 TSH 3rd Generation Urine Color Yellow Urine Clarity Clear Urine pH 5.0 Ur Specific [place] 1.020 Urine Protein Negative Urine Glucose (UA) 3+ H Urine Ketones Negative Urine Blood Negative Urine Nitrate Negative Urine Bilirubin Negative Urine Urobilinogen Normal Ur Leukocyte Esterase Neg Urine WBC (Auto) 1 Urine RBC (Auto) 2 Influenza Typ A,B (EIA) 12/28/18 12/28/18 12/28/18 03:38 03:38 07:39 WBC RBC Hgb Hct MCV MCH MCHC RDW Plt Count MPV Neut % (Auto) Lymph % (Auto) [place] % (Auto) Eos % (Auto) Baso % (Auto) Neut # (Auto) Lymph # (Auto) [place] # (Auto) Eos # (Auto) Baso # (Auto) PT INR APTT D-Dimer, Quantitative Sodium 137 Potassium 4.2 Chloride 103 Carbon Dioxide 29 Anion Gap 9 L BUN 14 Creatinine 1.1 Est GFR ( Amer) > 60 Est GFR (Non-Af Amer) > 60 POC Glucose (mg/dL) 143 H Random Glucose 130 H D Hemoglobin A1c 8.0 H D Calcium 9.4 Total Bilirubin 0.3 AST 18 ALT 21 D Alkaline Phosphatase 46 Total Creatine Kinase CK-MB (Mass) Troponin I NT-Pro-B Natriuret Pep Total Protein 6.7 Albumin 3.9 Globulin 2.7 Albumin/Globulin Ratio 1.4 Triglycerides 123 D Cholesterol 166 LDL Cholesterol Direct 116 HDL Cholesterol 35 Free T4 TSH 3rd Generation 7.14 H Urine Color Urine Clarity Urine pH Ur Specific [place] Urine Protein Urine Glucose (UA) Urine Ketones Urine Blood Urine Nitrate Urine Bilirubin Urine Urobilinogen Ur Leukocyte Esterase Urine WBC (Auto) Urine RBC (Auto) Influenza Typ A,B (EIA) 12/28/18 12/28/18 12/28/18 07:51 09:20 09:46 WBC RBC Hgb Hct MCV MCH MCHC RDW Plt Count MPV Neut % (Auto) Lymph % (Auto) [place] % (Auto) Eos % (Auto) Baso % (Auto) Neut # (Auto) Lymph # (Auto) [place] # (Auto) Eos # (Auto) Baso # (Auto) PT INR APTT D-Dimer, Quantitative Sodium Potassium Chloride Carbon Dioxide Anion Gap BUN Creatinine Est GFR ( Amer) Est GFR (Non-Af Amer) POC Glucose (mg/dL) 143 H Random Glucose Hemoglobin A1c Calcium Total Bilirubin AST ALT Alkaline Phosphatase Total Creatine Kinase 67 CK-MB (Mass) 0.42 Troponin I < 0.0120 NT-Pro-B Natriuret Pep 56.4 Total Protein Albumin Globulin Albumin/Globulin Ratio Triglycerides Cholesterol LDL Cholesterol Direct HDL Cholesterol Free T4 1.06 TSH 3rd Generation Urine Color Urine Clarity Urine pH Ur Specific [place] Urine Protein Urine Glucose (UA) Urine Ketones Urine Blood Urine Nitrate Urine Bilirubin Urine Urobilinogen Ur Leukocyte Esterase Urine WBC (Auto) Urine RBC (Auto) Influenza Typ A,B (EIA) 12/28/18 17:21 WBC RBC Hgb Hct MCV MCH MCHC RDW Plt Count MPV Neut % (Auto) Lymph % (Auto) [place] % (Auto) Eos % (Auto) Baso % (Auto) Neut # (Auto) Lymph # (Auto) [place] # (Auto) Eos # (Auto) Baso # (Auto) PT INR APTT D-Dimer, Quantitative Sodium Potassium Chloride Carbon Dioxide Anion Gap BUN Creatinine Est GFR ( Amer) Est GFR (Non-Af Amer) POC Glucose (mg/dL) 194 H Random Glucose Hemoglobin A1c Calcium Total Bilirubin AST ALT Alkaline Phosphatase Total Creatine Kinase CK-MB (Mass) Troponin I NT-Pro-B Natriuret Pep Total Protein Albumin Globulin Albumin/Globulin Ratio Triglycerides Cholesterol LDL Cholesterol Direct HDL Cholesterol Free T4 TSH 3rd Generation Urine Color Urine Clarity Urine pH Ur Specific [place] Urine Protein Urine Glucose (UA) Urine Ketones Urine Blood Urine Nitrate Urine Bilirubin Urine Urobilinogen Ur Leukocyte Esterase Urine WBC (Auto) Urine RBC (Auto) Influenza Typ A,B (EIA) Assessment & Plan - Date & Time Date: 12/28/18 (I have seen and examined the patient. I agree with the findings and plan of care as documented by Dr. Sahni. Patient with chest pain. His tory of CAD. Prior CABG. ROMIx3 with EKG. Aspirin and Statin. Continue home meds. Also with vertigo. Responsive to Antivert. Fall precautions. Monitor for acute changes.) Time: 18:57 Attending/Attestation - Attestation I have personally seen and examined this patient.: Yes I have fully participated in the care of the patient.: Yes I have reviewed all pertinent clinical information: Yes
[2018-12-28 03:48] LABS: BASO # 0.1 K/uL (0.0-0.2); BASO % 1.9 % (0.0-2.0); EOS # 0.1 K/uL (0.0-0.7); EOS % 1.8 % (0.0-4.0); HEMOGLOBIN 12.9 g/dL (12.0-18.0); LYMPH # 2.3 K/uL (1.0-4.3); LYMPH % 31.5 % (20.0-40.0); MEAN CELL VOLUME 83.3 fL (80.0-94.0); MEAN CORPUSCULAR HEMOGLOBIN 27.5 pg (27.0-31.0); MEAN PLATELET VOLUME 8.5 fL (7.2-11.7); MONO # 0.8 K/uL (0.0-0.8); MONO % 11.3 % (0.0-10.0); NEUT % 53.5 % (50.0-75.0); RBC 4.69 Mil/uL (4.40-5.90); RED CELL DISTRIBUTION WIDTH 14.5 % (11.5-14.5); WHITE BLOOD COUNT 7.4 K/uL (4.8-10.8)
[2018-12-28 04:06] LABS: LDL CHOLESTEROL 116 mg/dL (0-129)
[2018-12-28 04:07] LABS: CK-MB 0.53 ng/mL (0.0-3.38)
[2018-12-28 04:23] LABS: ALB/GLOB RATIO 1.4 (1.0-2.1); ALBUMIN 3.9 g/dL (3.5-5.0); ALT/SGPT 21 U/L (21-72); AST/SGOT 18 U/L (17-59); BLOOD UREA NITROGEN 14 mg/dL (9-20); CALCIUM 9.4 mg/dl (8.6-10.4); GFR NON-AFRICAN AMERICAN > 60; HDL CHOLESTEROL 35 mg/dL (30-70)
--- NOTE | 2018-12-28 07:37 | CP.PCM.PN ---
<Fartun Alonso - Last Filed: 12/28/18 16:56> Subjective - Date & Time of Evaluation Date of Evaluation: 12/28/18 Time of Evaluation: 07:37 - Subjective Subjective: PGY-1 Fartun Alonso D.O. Medicine progress note for Dr. Hilario's service: Patient was seen and examined this morning. He states he is feeling better. Denies current chest pain and dizziness. Patient admits to smoking 1-2 cigarettes per day. He is aware he has a bad heart and says that he takes his medications. Denies LAI, palpitations, SOB. Objective - Vital Signs/Intake and Output Vital Signs (last 24 hours): Temp Pulse Resp BP Pulse Ox 97.7 F 77 20 122/66 97 12/28/18 05:27 12/28/18 05:27 12/28/18 05:27 12/28/18 05:27 12/28/18 05:27 - Medications Medications: Current Medications Acetaminophen (Tylenol 325mg Tab) 650 mg PO Q6 PRN PRN Reason: Fever >100.4 F Aspirin (Aspirin Chewable) 81 mg PO DAILY [facility] Benzonatate (Tessalon Perles) 100 mg PO TID PRN PRN Reason: Cough Carvedilol (Coreg) 3.125 mg PO BID [facility] Clopidogrel Bisulfate (Plavix) 75 mg PO DAILY [facility] Fenofibrate (Tricor) 145 mg PO QPM [facility] Gabapentin (Neurontin) 300 mg PO TID [facility] Glipizide (Glucotrol) 5 mg PO ACB [facility] Isosorbide Mononitrate (Imdur Er) 30 mg PO DAILY [facility] Lisinopril (Zestril) 2.5 mg PO DAILY [facility] Meclizine HCl (Antivert) 25 mg PO Q8H PRN PRN Reason: Dizziness Metformin HCl (Glucophage) 1,000 mg PO BID [facility] Nitroglycerin (Nitrostat Sl Tab) 0.4 mg SL Q5M PRN PRN Reason: Pain, moderate (4-7) [id number] Ethyl Esters (Lovaza) 1 gm PO DAILY [facility] Ranolazine (Ranexa) 500 mg PO BID [facility] Rosuvastatin Calcium (Crestor) 10 mg PO HS [facility] Sitagliptin Phosphate (Januvia) 25 mg PO DAILY [facility] - Labs Labs: 12/28/18 03:38 12/28/18 03:38 PT 12.6 SECONDS (9.7-12.2) H 12/27/18 20:22 INR 1.2 12/27/18 20:22 APTT 34 SECONDS (21-34) 12/27/18 20:22 - Constitutional Appears: Non-toxic, No Acute Distress - Head Exam Head Exam: ATRAUMATIC, NORMAL INSPECTION - Eye Exam Eye Exam: EOMI, Normal appearance - ENT Exam ENT Exam: Mucous Membranes Moist - Neck Exam Neck Exam: Normal Inspection - Respiratory Exam Respiratory Exam: Clear to Ausculation Bilateral, NORMAL BREATHING PATTERN. absent: Respiratory Distress - Cardiovascular Exam Cardiovascular Exam: RRR, +S1, +S2 - GI/Abdominal Exam GI & Abdominal Exam: Soft. absent: Distended, Tenderness - Extremities Exam Extremities Exam: Normal Inspection. absent: Pedal Edema - Back Exam Back Exam: NORMAL INSPECTION - Neurological Exam Neurological Exam: Alert, Awake, CN II-XII Intact, Oriented x3 - Psychiatric Exam Psychiatric exam: Normal Affect, Normal Mood - Skin Skin Exam: Dry, Normal Color, Warm Assessment and Plan - Assessment and Plan (Free Text) Assessment: Patient is a 63 yo male with CAD s/p CABG, T2DM, HTN, and HLD who presented with chest pain and dizziness. Patient had a severely abnormal stress test in 2017, and he continues to smoke daily. Pending cardiac cath today. Plan: Chest pain rule out NV - EKG: Sinus tachycardia - ARVIN negative x3 - Echo 2017: EF 65% - Stress test 2017: severely abnormal - TSH elev (7.4), free T4 wnl - D-dimer 233 - BNP 56 - Echo pending - Cardiac cath today - Nitro sublingual PRN - Ranexa 500 mg PO BID - Cardiology consulted ([facility])- cath today Dizziness, acute, resolved - CT head: No acute intracranial abnormality - Antivert 25 mg PO Q8H Cough, acute - CXR: increased and coarsened interstitial markenings- r/o reactive/inflammatory - Benzonatate 100 mg PO TID PRN - Tylenol 650 mg PO Q6H PRN Coronary artery disease s/p CABG, chronic - ASA 81 mg PO daily - Plavix 75 mg PO daily - Isosorbide mononitrate 30 mg PO daily - Ranexa 500 mg PO BID - Crestor 10 mg PO QHS Hypertension, chronic - Carvedilol 3.125 PO BID - Lisinopril 2.5 mg PO daily Type 2 diabetes mellitus with neuropathy, chronic - A1c 8 - Accuchecks ACHS--> Q6H while NPO pre cath - Range 140-260 - Hypoglycemia protocol - ISS - Hold Metformin - Januvia 25 mg PO daily - Glipizide 4 mg PO daily - Gabapentin 300 mg PO TID Hyperlipidemia, chronic - Lipid panel wnl - Fenofibrate 145 mg PO daily - [place]-3 1 g PO daily - Crestor 10 mg PO QHS Ppx: VTE: SCDs, chemical anticoag held pre-op GI: not indicated Diet: Heart healthy- low consistent carb--> NPO pre cath Case discussed with attending, Dr. Hilario. <Ioana Hilario V - Last Filed: 12/28/18 18:30> Objective - Vital Signs/Intake and Output Vital Signs (last 24 hours): Temp Pulse Resp BP Pulse Ox 98.7 F 89 20 102/64 96 12/28/18 16:35 12/28/18 16:35 12/28/18 16:35 12/28/18 16:35 12/28/18 16:35 - Medications Medications: Current Medications Acetaminophen (Tylenol 325mg Tab) 650 mg PO Q6 PRN PRN Reason: Fever >100.4 F Aspirin (Aspirin Chewable) 81 mg PO DAILY [facility] Last Admin: 12/28/18 09:39 Dose: 81 mg Benzonatate (Tessalon Perles) 100 mg PO TID PRN PRN Reason: Cough Carvedilol (Coreg) 3.125 mg PO BID [facility] Last Admin: 12/28/18 17:55 Dose: Not Given Clopidogrel Bisulfate (Plavix) 75 mg PO DAILY [facility] Last Admin: 12/28/18 09:39 Dose: 75 mg Fenofibrate (Tricor) 145 mg PO QPM [facility] Gabapentin (Neurontin) 300 mg PO TID [facility] Last Admin: 12/28/18 17:55 Dose: Not Given Glipizide (Glucotrol) 5 mg PO ACB [facility] Last Admin: 12/28/18 08:24 Dose: 5 mg Isosorbide Mononitrate (Imdur Er) 30 mg PO DAILY [facility] Last Admin: 12/28/18 09:39 Dose: 30 mg Lisinopril (Zestril) 2.5 mg PO DAILY [facility] Last Admin: 12/28/18 09:39 Dose: 2.5 mg Meclizine HCl (Antivert) 25 mg PO Q8H PRN PRN Reason: Dizziness Nitroglycerin (Nitrostat Sl Tab) 0.4 mg SL Q5M PRN PRN Reason: Pain, moderate (4-7) [id number] Ethyl Esters (Lovaza) 1 gm PO DAILY [facility] Last Admin: 12/28/18 09:39 Dose: 1 gm Ranolazine (Ranexa) 500 mg PO BID [facility] Last Admin: 12/28/18 17:55 Dose: Not Given Rosuvastatin Calcium (Crestor) 10 mg PO [facility] Sitagliptin Phosphate (Januvia) 25 mg PO DAILY [facility] Last Admin: 12/28/18 09:39 Dose: 25 mg - Labs Labs: 12/28/18 03:38 12/28/18 03:38 PT 12.6 SECONDS (9.7-12.2) H 12/27/18 20:22 INR 1.2 12/27/18 20:22 APTT 34 SECONDS (21-34) 12/27/18 20:22 Attending/Attestation - Attestation I have personally seen and examined this patient.: Yes I have fully participated in the care of the patient.: Yes I have reviewed all pertinent clinical information, including history, physical exam and plan: Yes Notes (Text): Patient seen, examined and case discussed with day-time resident. Patient seen in the ED, bed 14, awaiting bed for upstairs. Patient has completed echocardiogram earlier today. Patient reports he has felt worsening chest pain over the past month, and continues to smoke when questioned. Cardiology consult obtained; discussed case with Dr. mao, patient noted to have recent stress test which was abnormal but patient did left AMA in prior hospitalization. given clinical symptoms as well as diabetes, smoker, prior CABG, cardiology has recommended for cardiac cath; will add on today. Patient last ate at 1pm: i discussed with patient's nurse Kimberlee in the ED regarding cardiac cath and to make patient NPO for procedure today. Assessment/Plan 1. Chest pain History of CABG X4 History of Coronary Artery Disease Assessment/Plan * Cardiology Dr. mao on consult help appreciated * Recommends for cardiac cath * BRUNO: 4 20% risk at 14 days of all-cause mortality, new or recurrent NV, or severe recurrent ischemia requiring urgent revascularization. Patient has significant cardiac risk factors including male, smoker, hypertension, known CAD, known CABG, diabetes and recent abnormal stress test in 2017. * EKG: Sinus tachycardia * ARVIN negative x3 * pending echocardiogram * Echo 2017: EF 65% * Exercise Stress test 2017: severely abnormal * Prior cardiac cath in 2013: LAD 100%, left circumflex 80%, rca 100%, grafts occluded, EF:5-% inferior wall hypokineese. * TSH elev (7.4), free T4 wnl * D-dimer 233 * BNP 56 * Aspirin 81mg PO daily * Plavix 75mg PO daily * Coreg 3.125mg PO BID * Ranexa 500mg PO BID * Crestor 10mg POqHS * Lisinopril 2.5mg PO daily * Imdur 30mg PO daily 2. Dizziness Assessment/Plan * CT head: No acute intracranial abnormality * Antivert 25 mg PO Q8H 3. Cough Assessment/Plan * CXR: increased and coarsened interstitial markenings- r/o reactive/inflammatory * Benzonatate 100 mg PO TID PRN * Tylenol 650 mg PO Q6H PRN * Counselled against smoking cessation at bedside. 4. Coronary artery disease s/p CABG, chronic Assessment/Plan * ASA 81 mg PO daily * Plavix 75 mg PO daily * Isosorbide mononitrate 30 mg PO daily * Ranexa 500 mg PO BID * Crestor 10 mg PO QHS * Lisinopril 2.5mg PO daily * Carvedilol 3.125 PO BID 5. Hypertension, chronic Assessment/Plan * Carvedilol 3.125 PO BID * Lisinopril 2.5 mg PO daily 6. Type 2 diabetes mellitus with neuropathy, chronic Assessment/Plan * A1c 8 * Accuchecks ACHS--> Q6H while NPO pre cath - Range 140-260 * Hypoglycemia protocol * ISS * Hold Metformin * Januvia 25 mg PO daily * Glipizide 4 mg PO daily * Gabapentin 300 mg PO TID 7. Hyperlipidemia, chronic Assessment/Plan * Lipid panel wnl * Fenofibrate 145 mg PO daily * [place]-3 1 g PO daily * Crestor 10 mg PO QHS 8. Ppx: * VTE: SCDs, chemical anticoag held pre-op * GI: not indicated * Diet: Heart healthy- low consistent carb--> NPO pre cath Disposition: given patient' significant cardiac risk, chest pain, recent abnormal stress test, cardiology recommends for cardiac cath will add on schedule today. patient is NPO. Last meal per nurse was at 1pm.
--- NOTE | 2018-12-28 09:28 | CT ---
Date of service: 12/27/2018 PROCEDURE: CT HEAD WITHOUT CONTRAST. HISTORY: Dizziness COMPARISON: No prior study available comparison TECHNIQUE: Axial computed tomography images were obtained through the head/brain without intravenous contrast. Radiation dose: Total exam DLP = 1188.97 mGy-cm. This CT exam was performed using one or more of the following dose reduction techniques: Automated exposure control, adjustment of the mA and/or kV according to patient size, and/or use of iterative reconstruction technique. FINDINGS: HEMORRHAGE: No acute parenchymal, subarachnoid nor hemorrhage. BRAIN: Mild diffuse and confluent chronic periventricular white matter ischemic changes are seen extending peripherally into deep subcortical white matter both cerebral hemispheres.. Moderate generalized volume loss. VENTRICLES: No obstructive hydrocephalus. CALVARIUM: There are no acute calvarial fractures. PARANASAL SINUSES: Unremarkable as visualized. No significant inflammatory changes. MASTOID AIR CELLS: Unremarkable as visualized. No inflammatory changes. OTHER FINDINGS: None. IMPRESSION: No acute intracranial hemorrhage. Mild chronic periventricular white matter ischemic changes. Moderate generalized volume loss.
[2018-12-28] MEDS: Omega-3-Acid Ethyl Esters 1 GM Cap PO SCH (09:39)
[2018-12-28] MEDS: Ranolazine 500 mg Extended Release Tablets PO SCH ×3 (09:39→18:36)
--- NOTE | 2018-12-28 10:03 | RAD ---
Date of service: 12/27/2018 HISTORY: chest pain chest pain COMPARISON: Comparison made with chest radiograph dated 05/02/2017. TECHNIQUE: Chest PA and lateral views FINDINGS: LUNGS: The interstitial markings are increased and coarsened; rule out sequela of reactive/inflammatory airway disease or viral illness. The possibility of developing pulmonary venous congestion not excluded. Azygos fissure again noted. PLEURA: No significant pleural effusion identified. No pneumothorax apparent. CARDIOVASCULAR: No aortic atherosclerotic calcification present. Heart size within range of normal. Sternotomy wires again noted. No pulmonary vascular congestion. OSSEOUS STRUCTURES: No significant abnormalities. VISUALIZED UPPER ABDOMEN: Normal. OTHER FINDINGS: None. IMPRESSION: The interstitial markings are increased and coarsened; rule out sequela of reactive/inflammatory airway disease or viral illness. The possibility of developing pulmonary venous congestion not excluded. Azygos fissure again noted.
[2018-12-28 10:17] LABS: CK-MB 0.42 ng/mL (0.0-3.38)
[2018-12-28 11:03] LABS: B-TYPE NATRIURETIC PEPTIDE 56.4 pg/mL (0-900)
[2018-12-28 16:45] VITALS: RESP 20
--- NOTE | 2018-12-28 18:58 | CP.PCM.CON ---
History of Present Illness - History of Present Illness History of Present Illness: Mark Benz, PGY-1, Cardiology Consult Note for Dr. Ayers 63 year old Czech speaking male with past medical history of hypertension, diabetes, osteoarthritis presents with chest pain, dizziness, and subjective fever for 4 days. Patient has also had right shoulder pain for one month. Chest pain was relieved with medications upon admission, but patient still complains of dizziness. Patient also reports having generalized weakness and diarrhea 2 weeks ago that stopped 4 days ago. Patient denies shortness of breath, nausea, dysuria, and hematuria. PMH: as stated above PSH: CABG over 5 years ago with grafts to diagonal and obtuse marginal arteries FMHx: noncontributary SHx: smoked for 45 years 1 PPD and stopped 5 years ago Allergies: NKDA Patient has had a catheterization every year for the past 5 years. Review of Systems - Review of Systems Review of Systems: except as mentioned in HPI Past Patient History - Past Medical History & Family History Past Medical History?: Yes - Past Social History Smoking Status: Current Some Days Smoker - CARDIAC Hx Hypercholesterolemia: Yes Hx Hypertension: Yes Other/Comment: CAD - PULMONARY Hx Respiratory Disorders: No - NEUROLOGICAL Hx Neurological Disorder: No - HEENT Hx HEENT Problems: No - RENAL Hx Chronic Kidney Disease: No - ENDOCRINE/METABOLIC Hx Endocrine Disorders: Yes Hx Diabetes Mellitus Type 2: Yes - HEMATOLOGICAL/ONCOLOGICAL Hx Blood Disorders: No - INTEGUMENTARY Hx Dermatological Problems: No - MUSCULOSKELETAL/RHEUMATOLOGICAL Hx Musculoskeletal Disorders: No Hx Falls: Yes - GASTROINTESTINAL Other/Comment: Unintended Weight Loss - GENITOURINARY/GYNECOLOGICAL Hx Genitourinary Disorders: No - PSYCHIATRIC Hx Substance Use: No Other/Comment: current smoker, two to three cigarrettes per day - SURGICAL HISTORY Hx Coronary Artery Bypass Graft: Yes - ANESTHESIA Hx Anesthesia: Yes Hx Anesthesia Reactions: No Hx Malignant Hyperthermia: No Meds Allergies/Adverse Reactions: Allergies Allergy/AdvReac Type Severity Reaction Status Date / Time No Known Allergies Allergy Verified 12/27/18 19:06 - Medications Medications: Current Medications Acetaminophen (Tylenol 325mg Tab) 650 mg PO Q6 PRN PRN Reason: Fever >100.4 F Aspirin (Aspirin Chewable) 81 mg PO DAILY [facility] Last Admin: 12/28/18 09:39 Dose: 81 mg Benzonatate (Tessalon Perles) 100 mg PO TID PRN PRN Reason: Cough Carvedilol (Coreg) 3.125 mg PO BID [facility] Last Admin: 12/28/18 18:36 Dose: 3.125 mg Clopidogrel Bisulfate (Plavix) 75 mg PO DAILY [facility] Last Admin: 12/28/18 09:39 Dose: 75 mg Fenofibrate (Tricor) 145 mg PO QPM [facility] Last Admin: 12/28/18 18:36 Dose: 145 mg Gabapentin (Neurontin) 300 mg PO TID [facility] Last Admin: 12/28/18 18:36 Dose: 300 mg Glipizide (Glucotrol) 5 mg PO ACB [facility] Last Admin: 12/28/18 08:24 Dose: 5 mg Isosorbide Mononitrate (Imdur Er) 30 mg PO DAILY [facility] Last Admin: 12/28/18 09:39 Dose: 30 mg Lisinopril (Zestril) 2.5 mg PO DAILY [facility] Last Admin: 12/28/18 09:39 Dose: 2.5 mg Meclizine HCl (Antivert) 25 mg PO Q8H PRN PRN Reason: Dizziness Nitroglycerin (Nitrostat Sl Tab) 0.4 mg SL Q5M PRN PRN Reason: Pain, moderate (4-7) Rziud-1-Uflm Ethyl Esters (Lovaza) 1 gm PO DAILY [facility] Last Admin: 12/28/18 09:39 Dose: 1 gm Ranolazine (Ranexa) 500 mg PO BID [facility] Last Admin: 12/28/18 18:36 Dose: 500 mg Rosuvastatin Calcium (Crestor) 10 mg PO [facility] Sitagliptin Phosphate (Januvia) 25 mg PO DAILY [facility] Last Admin: 12/28/18 09:39 Dose: 25 mg Physical Exam - Constitutional Appears: Well, Non-toxic, No Acute Distress - Head Exam Head Exam: ATRAUMATIC, NORMAL INSPECTION, NORMOCEPHALIC - Eye Exam Eye Exam: EOMI, PERRL - ENT Exam ENT Exam: Mucous Membranes Moist - Respiratory Exam Respiratory Exam: Clear to Auscultation Bilateral, NORMAL BREATHING PATTERN - Cardiovascular Exam Cardiovascular Exam: REGULAR RHYTHM, RRR, +S1, +S2 - GI/Abdominal Exam GI & Abdominal Exam: Normal Bowel Sounds, Soft. absent: Tenderness - Extremities Exam Extremities exam: Positive for: full ROM, normal inspection. Negative for: pedal edema - Neurological Exam Neurological exam: Alert, CN II-XII Intact, Oriented x3 - Psychiatric Exam Psychiatric exam: Normal Affect, Normal Mood - Skin Skin Exam: Dry, Intact, Normal Color Results - Vital Signs Recent Vital Signs: Last Vital Signs Temp 98.7 F 12/28/18 16:35 Pulse 89 12/28/18 16:35 Resp 20 12/28/18 16:35 BP 102/64 12/28/18 16:35 Pulse Ox 96 12/28/18 16:35 - Labs Result Diagrams: 12/28/18 03:38 12/28/18 03:38 Labs: Laboratory Results - last 24 hr 12/27/18 12/27/18 12/27/18 19:02 20:22 20:22 WBC 10.1 D RBC 4.75 Hgb 13.5 Hct 39.8 MCV 83.8 MCH 28.3 MCHC 33.8 RDW 14.6 H Plt Count 226 MPV 8.7 Neut % (Auto) 60.4 Lymph % (Auto) 26.2 Stephenson % (Auto) 11.9 H Eos % (Auto) 1.0 Baso % (Auto) 0.5 Neut # (Auto) 6.1 Lymph # (Auto) 2.7 Stephenson # (Auto) 1.2 H Eos # (Auto) 0.1 Baso # (Auto) 0.1 PT 12.6 H INR 1.2 APTT 34 D-Dimer, Quantitative Sodium Potassium Chloride Carbon Dioxide Anion Gap BUN Creatinine Est GFR ( Amer) Est GFR (Non-Af Amer) POC Glucose (mg/dL) 265 H Random Glucose Hemoglobin A1c Calcium Total Bilirubin AST ALT Alkaline Phosphatase Total Creatine Kinase CK-MB (Mass) Troponin I NT-Pro-B Natriuret Pep Total Protein Albumin Globulin Albumin/Globulin Ratio Triglycerides Cholesterol LDL Cholesterol Direct HDL Cholesterol Free T4 TSH 3rd Generation Urine Color Urine Clarity Urine pH Ur Specific Lindsay Urine Protein Urine Glucose (UA) Urine Ketones Urine Blood Urine Nitrate Urine Bilirubin Urine Urobilinogen Ur Leukocyte Esterase Urine WBC (Auto) Urine RBC (Auto) Influenza Typ A,B (EIA) 12/27/18 12/27/18 12/27/18 20:22 20:22 20:22 WBC RBC Hgb Hct MCV MCH MCHC RDW Plt Count MPV Neut % (Auto) Lymph % (Auto) Stephenson % (Auto) Eos % (Auto) Baso % (Auto) Neut # (Auto) Lymph # (Auto) Stephenson # (Auto) Eos # (Auto) Baso # (Auto) PT INR APTT D-Dimer, Quantitative 233 Sodium 132 Potassium 4.1 Chloride 99 Carbon Dioxide 24 Anion Gap 13 BUN 15 Creatinine 1.2 Est GFR ( Amer) > 60 Est GFR (Non-Af Amer) > 60 POC Glucose (mg/dL) Random Glucose 316 H D Hemoglobin A1c Calcium 9.6 Total Bilirubin 0.4 AST 20 ALT 11 L D Alkaline Phosphatase 50 Total Creatine Kinase CK-MB (Mass) Troponin I < 0.0120 NT-Pro-B Natriuret Pep 78.5 Total Protein 7.2 Albumin 5.0 D Globulin 2.2 Albumin/Globulin Ratio 2.3 H Triglycerides Cholesterol LDL Cholesterol Direct HDL Cholesterol Free T4 TSH 3rd Generation Urine Color Urine Clarity Urine pH Ur Specific Lindsay Urine Protein Urine Glucose (UA) Urine Ketones Urine Blood Urine Nitrate Urine Bilirubin Urine Urobilinogen Ur Leukocyte Esterase Urine WBC (Auto) Urine RBC (Auto) Influenza Typ A,B (EIA) Negative for flu a/b 12/27/18 12/28/18 12/28/18 21:02 03:38 03:38 WBC 7.4 RBC 4.69 Hgb 12.9 Hct 39.1 MCV 83.3 MCH 27.5 MCHC 33.0 RDW 14.5 Plt Count 205 MPV 8.5 Neut % (Auto) 53.5 Lymph % (Auto) 31.5 Stephenson % (Auto) 11.3 H Eos % (Auto) 1.8 Baso % (Auto) 1.9 Neut # (Auto) 4.0 Lymph # (Auto) 2.3 Stephenson # (Auto) 0.8 Eos # (Auto) 0.1 Baso # (Auto) 0.1 PT INR APTT D-Dimer, Quantitative Sodium Potassium Chloride Carbon Dioxide Anion Gap BUN Creatinine Est GFR ( Amer) Est GFR (Non-Af Amer) POC Glucose (mg/dL) Random Glucose Hemoglobin A1c Calcium Total Bilirubin AST ALT Alkaline Phosphatase Total Creatine Kinase 73 CK-MB (Mass) 0.53 Troponin I < 0.0120 NT-Pro-B Natriuret Pep Total Protein Albumin Globulin Albumin/Globulin Ratio Triglycerides Cholesterol LDL Cholesterol Direct HDL Cholesterol Free T4 TSH 3rd Generation Urine Color Yellow Urine Clarity Clear Urine pH 5.0 Ur Specific Lindsay 1.020 Urine Protein Negative Urine Glucose (UA) 3+ H Urine Ketones Negative Urine Blood Negative Urine Nitrate Negative Urine Bilirubin Negative Urine Urobilinogen Normal Ur Leukocyte Esterase Neg Urine WBC (Auto) 1 Urine RBC (Auto) 2 Influenza Typ A,B (EIA) 12/28/18 12/28/18 12/28/18 03:38 03:38 07:39 WBC RBC Hgb Hct MCV MCH MCHC RDW Plt Count MPV Neut % (Auto) Lymph % (Auto) Stephenson % (Auto) Eos % (Auto) Baso % (Auto) Neut # (Auto) Lymph # (Auto) Stephenson # (Auto) Eos # (Auto) Baso # (Auto) PT INR APTT D-Dimer, Quantitative Sodium 137 Potassium 4.2 Chloride 103 Carbon Dioxide 29 Anion Gap 9 L BUN 14 Creatinine 1.1 Est GFR ( Amer) > 60 Est GFR (Non-Af Amer) > 60 POC Glucose (mg/dL) 143 H Random Glucose 130 H D Hemoglobin A1c 8.0 H D Calcium 9.4 Total Bilirubin 0.3 AST 18 ALT 21 D Alkaline Phosphatase 46 Total Creatine Kinase CK-MB (Mass) Troponin I NT-Pro-B Natriuret Pep Total Protein 6.7 Albumin 3.9 Globulin 2.7 Albumin/Globulin Ratio 1.4 Triglycerides 123 D Cholesterol 166 LDL Cholesterol Direct 116 HDL Cholesterol 35 Free T4 TSH 3rd Generation 7.14 H Urine Color Urine Clarity Urine pH Ur Specific Lindsay Urine Protein Urine Glucose (UA) Urine Ketones Urine Blood Urine Nitrate Urine Bilirubin Urine Urobilinogen Ur Leukocyte Esterase Urine WBC (Auto) Urine RBC (Auto) Influenza Typ A,B (EIA) 12/28/18 12/28/18 12/28/18 07:51 09:20 09:46 WBC RBC Hgb Hct MCV MCH MCHC RDW Plt Count MPV Neut % (Auto) Lymph % (Auto) Stephenson % (Auto) Eos % (Auto) Baso % (Auto) Neut # (Auto) Lymph # (Auto) Stephenson # (Auto) Eos # (Auto) Baso # (Auto) PT INR APTT D-Dimer, Quantitative Sodium Potassium Chloride Carbon Dioxide Anion Gap BUN Creatinine Est GFR ( Amer) Est GFR (Non-Af Amer) POC Glucose (mg/dL) 143 H Random Glucose Hemoglobin A1c Calcium Total Bilirubin AST ALT Alkaline Phosphatase Total Creatine Kinase 67 CK-MB (Mass) 0.42 Troponin I < 0.0120 NT-Pro-B Natriuret Pep 56.4 Total Protein Albumin Globulin Albumin/Globulin Ratio Triglycerides Cholesterol LDL Cholesterol Direct HDL Cholesterol Free T4 1.06 TSH 3rd Generation Urine Color Urine Clarity Urine pH Ur Specific Lindsay Urine Protein Urine Glucose (UA) Urine Ketones Urine Blood Urine Nitrate Urine Bilirubin Urine Urobilinogen Ur Leukocyte Esterase Urine WBC (Auto) Urine RBC (Auto) Influenza Typ A,B (EIA) 12/28/18 17:21 WBC RBC Hgb Hct MCV MCH MCHC RDW Plt Count MPV Neut % (Auto) Lymph % (Auto) Stephenson % (Auto) Eos % (Auto) Baso % (Auto) Neut # (Auto) Lymph # (Auto) Stephenson # (Auto) Eos # (Auto) Baso # (Auto) PT INR APTT D-Dimer, Quantitative Sodium Potassium Chloride Carbon Dioxide Anion Gap BUN Creatinine Est GFR ( Amer) Est GFR (Non-Af Amer) POC Glucose (mg/dL) 194 H Random Glucose Hemoglobin A1c Calcium Total Bilirubin AST ALT Alkaline Phosphatase Total Creatine Kinase CK-MB (Mass) Troponin I NT-Pro-B Natriuret Pep Total Protein Albumin Globulin Albumin/Globulin Ratio Triglycerides Cholesterol LDL Cholesterol Direct HDL Cholesterol Free T4 TSH 3rd Generation Urine Color Urine Clarity Urine pH Ur Specific Lindsay Urine Protein Urine Glucose (UA) Urine Ketones Urine Blood Urine Nitrate Urine Bilirubin Urine Urobilinogen Ur Leukocyte Esterase Urine WBC (Auto) Urine RBC (Auto) Influenza Typ A,B (EIA) Assessment & Plan - Assessment and Plan (Free Text) Assessment: Chest pain with ACS rule out Hypertension Diabetes Mellitus Plan: Chest pain with ACS rule out Hypertension Diabetes Mellitus CXR: interstitial markings are increased and coarsened Azygos fissure noted Head CT: no acute intracranial hemorrhage Tropx3: negative Unremarkable lipid panel TSH: 7.14 T4: 1.06 BNP: 78.5 HgbA1c: 8 Follow up echocardiogram and nuclear stress test Cardiac catheterization likely for tomorrow Keep patient NPO after midnight Medications: aspirin 81 mg daily coreg 3.125 mg BID plavix 75 mg daily fenofibrate 145 mg QPM glipizide 5 mg ACB zestril 2.5 mg daily meclizine 25 mg Q8PRN Nitroglycerin 0.4 mg Q5M PRN [place] 3 Acid Ranexa 500 mg BID Rosuvastatin 10 mg HS Yessica - Date & Time Date: 12/28/18 Time: 18:59
[2018-12-29 07:22] LABS: BASO % 0.6 % (0.0-2.0); EOS # 0.1 K/uL (0.0-0.7); HEMOGLOBIN 13.9 g/dL (12.0-18.0); LYMPH % 30.5 % (20.0-40.0); MEAN CELL VOLUME 84.4 fL (80.0-94.0); MEAN CORPUSCULAR HEMOGLOBIN 28.4 pg (27.0-31.0); MEAN CORPUSCULAR HGB CONC 33.6 g/dL (33.0-37.0); MEAN PLATELET VOLUME 9.2 fL (7.2-11.7); MONO # 0.8 K/uL (0.0-0.8); MONO % 11.8 % (0.0-10.0); NEUT # 3.6 K/uL (1.8-7.0); NEUT % 55.1 % (50.0-75.0); NRBC % 0.2 % (0.0-2.0); RBC 4.89 Mil/uL (4.40-5.90); RED CELL DISTRIBUTION WIDTH 14.4 % (11.5-14.5); WHITE BLOOD COUNT 6.4 K/uL (4.8-10.8)
[2018-12-29 07:43] LABS: ALB/GLOB RATIO 1.4 (1.0-2.1); ALBUMIN 4.1 g/dL (3.5-5.0); ALT/SGPT 14 U/L (21-72); AST/SGOT 26 U/L (17-59); BLOOD UREA NITROGEN 25 mg/dL (9-20); CALCIUM 9.8 mg/dl (8.6-10.4); GFR NON-AFRICAN AMERICAN 51
--- NOTE | 2018-12-29 07:45 | CP.PCM.PN ---
<Mark Benz - Last Filed: 12/29/18 16:15> Subjective - Date & Time of Evaluation Date of Evaluation: 12/29/18 Time of Evaluation: 07:43 - Subjective Subjective: Mark Benz, PGY-1, Cardiolgy Progress Note for Dr. Ayers Patient was seen and evaluated at bedside. Patient had no acute overnight events. Patient reports mild chest pain and shortness of breath. Objective - Vital Signs/Intake and Output Vital Signs (last 24 hours): Temp Pulse Resp BP Pulse Ox 98.4 F 75 20 130/77 96 12/28/18 23:35 12/29/18 01:00 12/28/18 23:35 12/28/18 23:35 12/28/18 23:35 - Medications Medications: Current Medications Acetaminophen (Tylenol 325mg Tab) 650 mg PO Q6 PRN PRN Reason: Fever >100.4 F Aspirin (Aspirin Chewable) 81 mg PO DAILY [facility] Last Admin: 12/28/18 09:39 Dose: 81 mg Benzonatate (Tessalon Perles) 100 mg PO TID PRN PRN Reason: Cough Carvedilol (Coreg) 3.125 mg PO BID [facility] Last Admin: 12/28/18 18:36 Dose: 3.125 mg Clopidogrel Bisulfate (Plavix) 75 mg PO DAILY [facility] Last Admin: 12/28/18 09:39 Dose: 75 mg Fenofibrate (Tricor) 145 mg PO QPM [facility] Last Admin: 12/28/18 18:36 Dose: 145 mg Gabapentin (Neurontin) 300 mg PO TID [facility] Last Admin: 12/28/18 18:36 Dose: 300 mg Glipizide (Glucotrol) 5 mg PO ACB [facility] Last Admin: 12/28/18 08:24 Dose: 5 mg Heparin Sodium (Porcine) (Heparin) 5,000 units SC Q8 [facility] Last Admin: 12/29/18 06:54 Dose: Not Given Isosorbide Mononitrate (Imdur Er) 30 mg PO DAILY [facility] Last Admin: 12/28/18 09:39 Dose: 30 mg Lisinopril (Zestril) 2.5 mg PO DAILY [facility] Last Admin: 12/28/18 09:39 Dose: 2.5 mg Meclizine HCl (Antivert) 25 mg PO Q8H PRN PRN Reason: Dizziness Nitroglycerin (Nitrostat Sl Tab) 0.4 mg SL Q5M PRN PRN Reason: Pain, moderate (4-7) Gjntt-2-Beai Ethyl Esters (Lovaza) 1 gm PO DAILY [facility] Last Admin: 12/28/18 09:39 Dose: 1 gm Ranolazine (Ranexa) 500 mg PO BID [facility] Last Admin: 12/28/18 18:36 Dose: 500 mg Rosuvastatin Calcium (Crestor) 10 mg PO HS [facility] Last Admin: 12/28/18 21:54 Dose: 10 mg Sitagliptin Phosphate (Januvia) 25 mg PO DAILY [facility] Last Admin: 12/28/18 09:39 Dose: 25 mg - Labs Labs: 12/29/18 07:07 12/28/18 03:38 PT 12.6 SECONDS (9.7-12.2) H 12/27/18 20:22 INR 1.2 12/27/18 20:22 APTT 34 SECONDS (21-34) 12/27/18 20:22 - Constitutional Appears: Well, Non-toxic, No Acute Distress - Head Exam Head Exam: ATRAUMATIC, NORMAL INSPECTION, NORMOCEPHALIC - Eye Exam Eye Exam: EOMI, PERRL - ENT Exam ENT Exam: Mucous Membranes Moist - Respiratory Exam Respiratory Exam: Clear to Auscultation Bilateral, NORMAL BREATHING PATTERN - Cardiovascular Exam Cardiovascular Exam: REGULAR RHYTHM, RRR, +S1, +S2 - GI/Abdominal Exam GI & Abdominal Exam: Normal Bowel Sounds, Soft. absent: Tenderness - Extremities Exam Extremities exam: Positive for: full ROM, normal inspection. Negative for: pedal edema - Neurological Exam Neurological exam: Alert, CN II-XII Intact, Oriented x3 - Psychiatric Exam Psychiatric exam: Normal Affect, Normal Mood - Skin Skin Exam: Dry, Intact, Normal Color Assessment and Plan - Assessment and Plan (Free Text) Assessment: Chest pain with ACS rule out Hypertension Diabetes Mellitus Plan: Chest pain with ACS rule out Hypertension Diabetes Mellitus CXR: interstitial markings are increased and coarsened Azygos fissure noted Head CT: no acute intracranial hemorrhage Tropx3: negative Unremarkable lipid panel TSH: 7.14 T4: 1.06 BNP: 56.4 from 78.5 HgbA1c: 8 Follow up echocardiogram and nuclear stress test Medications: aspirin 81 mg daily coreg 3.125 mg BID plavix 75 mg daily fenofibrate 145 mg QPM glipizide 5 mg ACB zestril 2.5 mg daily meclizine 25 mg Q8PRN Nitroglycerin 0.4 mg Q5M PRN [place] 3 Acid Ranexa 500 mg BID Rosuvastatin 10 mg HS Yessica <Dhaval Ayers - Last Filed: 12/29/18 23:16> Objective - Vital Signs/Intake and Output Vital Signs (last 24 hours): Temp Pulse Resp BP Pulse Ox 98.2 F 84 20 127/73 97 12/29/18 16:00 12/29/18 19:21 12/29/18 16:00 12/29/18 16:00 12/29/18 16:00 - Medications Medications: Current Medications Acetaminophen (Tylenol 325mg Tab) 650 mg PO Q6 PRN PRN Reason: Fever >100.4 F Albuterol/Ipratropium (Duoneb 3 Mg/0.5 Mg (3 Ml) Ud) 3 ml INH RQ6 [facility] Last Admin: 12/29/18 19:20 Dose: 3 ml Aspirin (Aspirin Chewable) 81 mg PO DAILY [facility] Last Admin: 12/29/18 11:54 Dose: Not Given Benzonatate (Tessalon Perles) 100 mg PO TID [facility] Last Admin: 12/29/18 17:34 Dose: 100 mg Carvedilol (Coreg) 3.125 mg PO BID [facility] Last Admin: 12/29/18 17:35 Dose: 3.125 mg Clopidogrel Bisulfate (Plavix) 75 mg PO DAILY [facility] Last Admin: 12/29/18 11:46 Dose: 75 mg Dextrose (Dextrose 50% Inj) 0 ml IV STAT PRN; Protocol PRN Reason: Hypoglycemia Protocol Dextrose (Glutose 15) 0 gm PO ONCE PRN; Protocol PRN Reason: Hypoglycemia Protocol Fenofibrate (Tricor) 145 mg PO QPM [facility] Last Admin: 12/29/18 17:35 Dose: 145 mg Gabapentin (Neurontin) 300 mg PO TID [facility] Last Admin: 12/29/18 17:35 Dose: 300 mg Glipizide (Glucotrol) 5 mg PO ACB [facility] Last Admin: 12/29/18 08:32 Dose: Not Given Glucagon (Glucagen Diagnostic Kit) 0 mg IM STAT PRN; Protocol PRN Reason: Hypoglycemia Protocol Heparin Sodium (Porcine) (Heparin) 5,000 units SC Q8 [facility] Last Admin: 12/29/18 21:00 Dose: 5,000 units Dextrose (Dextrose 5% In Water 1000 Ml) 1,000 mls @ 0 mls/hr IV .Q0M PRN; Protocol PRN Reason: Hypoglycemia Protocol Insulin Human Regular (Novolin R) 0 unit SC ACHS [facility]; Protocol Isosorbide Mononitrate (Imdur Er) 30 mg PO DAILY [facility] Last Admin: 12/29/18 10:30 Dose: Not Given Lisinopril (Zestril) 2.5 mg PO DAILY [facility] Last Admin: 12/29/18 11:46 Dose: 2.5 mg Meclizine HCl (Antivert) 25 mg PO Q8H PRN PRN Reason: Dizziness Nitroglycerin (Nitrostat Sl Tab) 0.4 mg SL Q5M PRN PRN Reason: Pain, moderate (4-7) Xzxso-2-Anrp Ethyl Esters (Lovaza) 1 gm PO DAILY [facility] Last Admin: 12/29/18 11:47 Dose: 1 gm Ranolazine (Ranexa) 500 mg PO BID [facility] Last Admin: 12/29/18 17:35 Dose: 500 mg Rosuvastatin Calcium (Crestor) 10 mg PO HS [facility] Last Admin: 12/29/18 20:59 Dose: 10 mg Sitagliptin Phosphate (Januvia) 25 mg PO DAILY [facility] Last Admin: 12/29/18 11:54 Dose: Not Given - Labs Labs: 12/29/18 07:07 12/29/18 07:07 PT 12.6 SECONDS (9.7-12.2) H 12/27/18 20:22 INR 1.2 12/27/18 20:22 APTT 34 SECONDS (21-34) 12/27/18 20:22 Attending/Attestation - Attestation I have personally seen and examined this patient.: Yes I have fully participated in the care of the patient.: Yes I have reviewed all pertinent clinical information, including history, physical exam and plan: Yes Notes (Text): 12/29/18 23:16 s/p stress test - no evidence of ischemia titrate meds and possible dc in am add ranexa 500mg po bid
[2018-12-29] MEDS ORDERED: Caffeine Citrated **INJ** 20 MG/ML IV ONE (08:15)
--- NOTE | 2018-12-29 09:17 | CP.PCM.PN ---
<Fartun Alonso - Last Filed: 12/29/18 12:57> Subjective - Date & Time of Evaluation Date of Evaluation: 12/29/18 Time of Evaluation: 09:17 - Subjective Subjective: PGY-1 Fartun Alonso D.O. Medicine progress note for Dr. 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 Patient says that dizziness and chest pain are resolved. He is complaining of cough. He initially asked to leave AMA but the potential severity of his condition is again explained, and he is agreeable to stay for further cardiac work up. Objective - Vital Signs/Intake and Output Vital Signs (last 24 hours): Temp Pulse Resp BP Pulse Ox 98.4 F 75 20 130/77 96 12/28/18 23:35 12/29/18 01:00 12/28/18 23:35 12/28/18 23:35 12/28/18 23:35 - Medications Medications: Current Medications Acetaminophen (Tylenol 325mg Tab) 650 mg PO Q6 PRN PRN Reason: Fever >100.4 F Aspirin (Aspirin Chewable) 81 mg PO DAILY [facility] Last Admin: 12/28/18 09:39 Dose: 81 mg Benzonatate (Tessalon Perles) 100 mg PO TID PRN PRN Reason: Cough Carvedilol (Coreg) 3.125 mg PO BID [facility] Last Admin: 12/28/18 18:36 Dose: 3.125 mg Clopidogrel Bisulfate (Plavix) 75 mg PO DAILY [facility] Last Admin: 12/28/18 09:39 Dose: 75 mg Fenofibrate (Tricor) 145 mg PO QPM [facility] Last Admin: 12/28/18 18:36 Dose: 145 mg Gabapentin (Neurontin) 300 mg PO TID [facility] Last Admin: 12/28/18 18:36 Dose: 300 mg Glipizide (Glucotrol) 5 mg PO ACB [facility] Last Admin: 12/29/18 08:32 Dose: Not Given Heparin Sodium (Porcine) (Heparin) 5,000 units SC Q8 [facility] Last Admin: 12/29/18 06:54 Dose: Not Given Isosorbide Mononitrate (Imdur Er) 30 mg PO DAILY [facility] Last Admin: 12/28/18 09:39 Dose: 30 mg Lisinopril (Zestril) 2.5 mg PO DAILY [facility] Last Admin: 12/28/18 09:39 Dose: 2.5 mg Meclizine HCl (Antivert) 25 mg PO Q8H PRN PRN Reason: Dizziness Nitroglycerin (Nitrostat Sl Tab) 0.4 mg SL Q5M PRN PRN Reason: Pain, moderate (4-7) Svstm-0-Oqqp Ethyl Esters (Lovaza) 1 gm PO DAILY [facility] Last Admin: 12/28/18 09:39 Dose: 1 gm Ranolazine (Ranexa) 500 mg PO BID [facility] Last Admin: 12/28/18 18:36 Dose: 500 mg Rosuvastatin Calcium (Crestor) 10 mg PO HS [facility] Last Admin: 12/28/18 21:54 Dose: 10 mg Sitagliptin Phosphate (Januvia) 25 mg PO DAILY [facility] Last Admin: 12/28/18 09:39 Dose: 25 mg - Labs Labs: 12/29/18 07:07 12/29/18 07:07 PT 12.6 SECONDS (9.7-12.2) H 12/27/18 20:22 INR 1.2 12/27/18 20:22 APTT 34 SECONDS (21-34) 12/27/18 20:22 - Additional Findings Additional findings: - Constitutional Appears: Non-toxic, No Acute Distress - Head Exam Head Exam: ATRAUMATIC, NORMAL INSPECTION - Eye Exam Eye Exam: EOMI, Normal appearance - ENT Exam ENT Exam: Mucous Membranes Moist - Neck Exam Neck Exam: Normal Inspection - Respiratory Exam Respiratory Exam: Clear to Ausculation Bilateral, NORMAL BREATHING PATTERN. absent: Respiratory Distress - Cardiovascular Exam Cardiovascular Exam: RRR, +S1, +S2 - GI/Abdominal Exam GI & Abdominal Exam: Soft. absent: Distended, Tenderness - Extremities Exam Extremities Exam: Normal Inspection. absent: Pedal Edema - Back Exam Back Exam: NORMAL INSPECTION - Neurological Exam Neurological Exam: Alert, Awake, CN II-XII Intact, Oriented x3 - Psychiatric Exam Psychiatric exam: Normal Affect, Normal Mood - Skin Skin Exam: Diaphoretic, Normal Color, Warm Assessment and Plan - Assessment and Plan (Free Text) Assessment: Patient is a 63 yo male with CAD s/p CABG, T2DM, HTN, and HLD who presented with chest pain and dizziness. Patient had a severely abnormal stress test in 2017, and he continues to smoke daily. Patient was scheduled for cardiac cath but machine is down. Pending cardiac stress test. Plan: Chest pain rule out TX - EKG: Sinus tachycardia - ARVIN negative x3 - Echo 2017: EF 65% - Stress test 2017: severely abnormal - TSH elev (7.4), free T4 wnl - D-dimer 233 - BNP 56 - Echo reading pending - Cardiac stress test today - Nitro sublingual PRN - Ranexa 500 mg PO BID - Cardiology consulted ([facility])- rec cath but machine is down Cough, acute - CXR: increased and coarsened interstitial markenings- r/o reactive/inflammatory - Duoneb Q6H MARILUZ - Benzonatate 100 mg PO TID MARILUZ - Tylenol 650 mg PO Q6H PRN Dizziness, acute, resolved - CT head: No acute intracranial abnormality - Antivert 25 mg PO Q8H PRN Coronary artery disease s/p CABG, chronic - ASA 81 mg PO daily - Plavix 75 mg PO daily - Isosorbide mononitrate 30 mg PO daily - Ranexa 500 mg PO BID - Crestor 10 mg PO QHS Hypertension, chronic, well-controlled - Carvedilol 3.125 PO BID - Lisinopril 2.5 mg PO daily Type 2 diabetes mellitus with neuropathy, chronic - A1c 8 - Accuchecks ACHS--> Q6H while NPO pre cath - Range 140-260 - Hypoglycemia protocol - ISS - Hold Metformin pending cath - Januvia 25 mg PO daily - Glipizide 4 mg PO daily - Gabapentin 300 mg PO TID Hyperlipidemia, chronic - Lipid panel wnl - Fenofibrate 145 mg PO daily - Danube-3 1 g PO daily - Crestor 10 mg PO QHS Ppx: VTE: SCDs, Heparin 5000 units SC Q8H GI: not indicated Diet: Heart healthy- low consistent carb--> NPO pre stress test Case discussed with attending, Dr. Hilario. <Ioana Hilario V - Last Filed: 12/29/18 16:54> Objective - Vital Signs/Intake and Output Vital Signs (last 24 hours): Temp Pulse Resp BP Pulse Ox 98.2 F 87 20 127/73 97 12/29/18 16:00 12/29/18 16:00 12/29/18 16:00 12/29/18 16:00 12/29/18 16:00 - Medications Medications: Current Medications Acetaminophen (Tylenol 325mg Tab) 650 mg PO Q6 PRN PRN Reason: Fever >100.4 F Albuterol/Ipratropium (Duoneb 3 Mg/0.5 Mg (3 Ml) Ud) 3 ml INH RQ6 [facility] Last Admin: 12/29/18 16:04 Dose: Not Given Aspirin (Aspirin Chewable) 81 mg PO DAILY [facility] Last Admin: 12/29/18 11:54 Dose: Not Given Benzonatate (Tessalon Perles) 100 mg PO TID [facility] Last Admin: 12/29/18 14:00 Dose: Not Given Carvedilol (Coreg) 3.125 mg PO BID [facility] Last Admin: 12/29/18 11:46 Dose: 3.125 mg Clopidogrel Bisulfate (Plavix) 75 mg PO DAILY [facility] Last Admin: 12/29/18 11:46 Dose: 75 mg Fenofibrate (Tricor) 145 mg PO QPM [facility] Last Admin: 12/28/18 18:36 Dose: 145 mg Gabapentin (Neurontin) 300 mg PO TID [facility] Last Admin: 12/29/18 14:00 Dose: Not Given Glipizide (Glucotrol) 5 mg PO ACB [facility] Last Admin: 12/29/18 08:32 Dose: Not Given Heparin Sodium (Porcine) (Heparin) 5,000 units SC Q8 [facility] Last Admin: 12/29/18 14:30 Dose: Not Given Isosorbide Mononitrate (Imdur Er) 30 mg PO DAILY [facility] Last Admin: 12/29/18 10:30 Dose: Not Given Lisinopril (Zestril) 2.5 mg PO DAILY [facility] Last Admin: 12/29/18 11:46 Dose: 2.5 mg Meclizine HCl (Antivert) 25 mg PO Q8H PRN PRN Reason: Dizziness Nitroglycerin (Nitrostat Sl Tab) 0.4 mg SL Q5M PRN PRN Reason: Pain, moderate (4-7) Aidqv-4-Mrxm Ethyl Esters (Lovaza) 1 gm PO DAILY [facility] Last Admin: 12/29/18 11:47 Dose: 1 gm Ranolazine (Ranexa) 500 mg PO BID [facility] Last Admin: 12/29/18 10:30 Dose: Not Given Rosuvastatin Calcium (Crestor) 10 mg PO HS [facility] Last Admin: 12/28/18 21:54 Dose: 10 mg Sitagliptin Phosphate (Januvia) 25 mg PO DAILY [facility] Last Admin: 12/29/18 11:54 Dose: Not Given - Labs Labs: 12/29/18 07:07 12/29/18 07:07 PT 12.6 SECONDS (9.7-12.2) H 12/27/18 20:22 INR 1.2 12/27/18 20:22 APTT 34 SECONDS (21-34) 12/27/18 20:22 Attending/Attestation - Attestation I have personally seen and examined this patient.: Yes I have fully participated in the care of the patient.: Yes I have reviewed all pertinent clinical information, including history, physical exam and plan: Yes Notes (Text): Patient seen, examined, discussed with pediatric medical assistant. Using the intermittent plunger scoop operator service patient reports that he continues to have mild chest pain and associated dry cough. Please note cardiac cath machine is down undergoing repairs at this time. Patient scheduled for a myocardial stress test with cardiology. Also patient was initially requesting for a waiver to leave the hospital however I did indicate to him strongly he has significant cardiac risk approximate risk for him to at home including but not limited to cardiac arrest and arrhythmia. 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 Sharp did indicate to him that the patient is admitted in the hospital at this time for chest pain undergoing cardiac workup. Re-emphasized smoking cessation at bedside Assessment/Plan 1. Chest pain History of CABG X4 History of Coronary Artery Disease Assessment/Plan * Cardiology Dr. mao on consult help appreciated * Recommends for cardiac cath--->cath machine is broken undergoing repairs * Myocardial stress test ordered * BRUNO: 4 20% risk at 14 days of all-cause mortality, new or recurrent TX, or severe recurrent ischemia requiring urgent revascularization. Patient has significant cardiac risk factors including male, smoker, hypertension, known CAD, known CABG, diabetes and recent abnormal stress test in 2017. * EKG: Sinus tachycardia * ARVIN negative x3 * pending echocardiogram * Echo 2017: EF 65% * Exercise Stress test 2017: severely abnormal * Prior cardiac cath in 2014: LAD 100%, left circumflex 80%, rca 100%, grafts occluded, EF:5-% inferior wall hypokineese. * TSH elev (7.4), free T4 wnl * D-dimer 233 * BNP 56 * Aspirin 81mg PO daily * Plavix 75mg PO daily * Coreg 3.125mg PO BID * Ranexa 500mg PO BID * Crestor 10mg POqHS * Lisinopril 2.5mg PO daily * Imdur 30mg PO daily 2. Dizziness Assessment/Plan * CT head: No acute intracranial abnormality * Antivert 25 mg PO Q8H 3. Cough Assessment/Plan * CXR: increased and coarsened interstitial markenings- r/o reactive/inflammatory * Benzonatate 100 mg PO TID PRN * Tylenol 650 mg PO Q6H PRN * Duonebs PRN shortness of breathe * Counselled against smoking cessation at bedside. 4. Coronary artery disease s/p CABG, chronic Assessment/Plan * ASA 81 mg PO daily * Plavix 75 mg PO daily * Isosorbide mononitrate 30 mg PO daily * Ranexa 500 mg PO BID * Crestor 10 mg PO QHS * Lisinopril 2.5mg PO daily * Carvedilol 3.125 PO BID 5. Hypertension, chronic Assessment/Plan * Carvedilol 3.125 PO BID * Lisinopril 2.5 mg PO daily 6. Type 2 diabetes mellitus with neuropathy, chronic Assessment/Plan * A1c 8 * Accuchecks ACHS--> Q6H while NPO pre cath - Range 140-260 * Hypoglycemia protocol * ISS * Hold Metformin * Januvia 25 mg PO daily * Glipizide 4 mg PO daily * Gabapentin 300 mg PO TID 7. Hyperlipidemia, chronic Assessment/Plan * Lipid panel wnl * Fenofibrate 145 mg PO daily * Danube-3 1 g PO daily * Crestor 10 mg PO QHS 8. Ppx: * VTE: SCDs, * Heparin 5000 units sub8H for DVT ppx * GI: not indicated * Diet: Heart healthy- low consistent carb Disposition: given patient' significant cardiac risk, chest pain, recent abnormal stress test, cardiology recommends for cardiac cath however the machine is broken. Patient scheduled for myocardial stress test today
[2018-12-29] MEDS: Ranolazine 500 mg Extended Release Tablets PO SCH ×2 (10:30→17:35)
[2018-12-29] MEDS: Omega-3-Acid Ethyl Esters 1 GM Cap PO SCH (11:47)
[2018-12-29] MEDS: Albuterol-Ipratrop 3 mg / 0.5 (3 ml) UD INH SCH ×2 (16:04→19:20)
[2018-12-29] MEDS ORDERED: Dextrose 50% SYRINGE Inj (50 ml) IV PRN (22:07)
[2018-12-29] MEDS ORDERED: Glucagon Recombinant 1 mg Inj IM PRN (22:07)
--- NOTE | 2018-12-29 22:38 | CARD ---
APPROVED REPORT Date of service: 12/29/2018 Protocol: LEXISCAN Test Type: LEXISCAN STRESS Test Indications: CHEST PAIN Medical History: CP Target HR: 158 bpm Resting ECG: normal Resting Heart Rate: 89 bpm Resting Blood Pressure: 128/80mmHg submaximum (85%): 134 bpm TEST SUMMARY PREINFSNHYPERV.25:[id number]/80.0. INFUSIONDOSE 100:300.00.01.085/.0. [id number]/80.0. PROCEDURE Pharmacologic stress testing was performed using 0.4mg per 5ml of regadenoson given intravenously over 7-10 seconds. POST EXERCISE Reason for Termination: Protocol Completed Target HR: No Max HR: 85 bpm 63% of Maximum Predicted HR: 158 bpm Exercise duration: 00:30 min:sec, 0 Stage Exercise capacity: 1.0METs Max Blood Pressure: 130/80mmHg Blood Pressure response to exercise: N/A Heart Rate response to exercise: N/A Chest Pain: No, none Angina index: 0 Arrhythmia: No, none ST Change: No, none Deviation: 0 mm EXAM: Myocardial Perfusion REST/STRESS Imaging Protocol The imaging protocol used to acquire images was Rest Tc-99m/stress Tc-99m 1 day Rest Spect myocardial perfusion imaging was performed in supine position 45 minutes following the injection of 12.6 mCi of Tc-99 Myoview. Gated Stress Spect was performed 45 minutes after intravenous 32.0 mCi Tc-99 Myoview injection. The images were gated to evaluate regional wall motion and calculate ventricular ejection fraction.Images were reconstructed using backfilter projection method in short horizontal and verticle long axis. Spect slices were generated. RESTING DATA EDV64.97ajSX8.50L/min ESV21.00mlMyocardial Vcmp740.00g Av. Heart Rate81.00bpm EF67.00% STRESS DATA EDV65.39brDC1.00L/min ESV21.00mlMyocardial Vhyt111.00g EF68.00% Regional WT score at stress:2.00 Regional WM score at stress:1.00 Summed WT score at stress:17.00 Av. Heart Rate90.00bpmSummed WM score at stress:16.00 Study quality was fair. Left Ventricular size was Normal at Rest and Stress. The rest and stress images show normal perfusion, normal contraction and thickening. LV Perf. Quant 17 Seg. SSS0.00 17 Seg. SRS0.00 17 Seg. SDS0.00 Stress Defect Extent (% LAD)0.00Rest Defect Extent (% LAD)0.00Rev. Defect Extent (% LAD)0.00 Stress Defect Extent (% LCX)0.00Rest Defect Extent (% LCX)2.50Rev. Defect Extent (% LCX)0.00 Stress Defect Extent (% RCA)0.00Rest Defect Extent (% RCA)0.00Rev. Defect Extent (% RCA)0.00 Stress Defect Extent (% OSMAN)0.00Rest Defect Extent (% OSMAN)1.70Rev. Defect Extent (% OSMAN)0.00 Other Information Quality:Fair Overall Exercise Capacity: n/a IMPRESSION Normal Myocardial Perfusion exercise stress study Metabolism/Perfusion There are no perfusion/metabolism defects. Conclusion 1. - Normal myocardial perfusion study with no evidence of ischemia 2. - Normal LVEF
[2018-12-30] MEDS: Albuterol-Ipratrop 3 mg / 0.5 (3 ml) UD INH SCH ×3 (02:20→14:06)
[2018-12-30] MEDS: (Novolin R) Insulin Human Regular 100 units/ml vial SC SCH ×3 (07:30→17:19)
[2018-12-30 08:25] LABS: BASO % 0.5 % (0.0-2.0); EOS # 0.2 K/uL (0.0-0.7); EOS % 2.7 % (0.0-4.0); HEMOGLOBIN 13.9 g/dL (12.0-18.0); LYMPH # 1.9 K/uL (1.0-4.3); LYMPH % 34.6 % (20.0-40.0); MEAN CELL VOLUME 84.4 fL (80.0-94.0); MEAN CORPUSCULAR HEMOGLOBIN 28.6 pg (27.0-31.0); MEAN CORPUSCULAR HGB CONC 33.9 g/dL (33.0-37.0); MEAN PLATELET VOLUME 8.9 fL (7.2-11.7); MONO # 0.7 K/uL (0.0-0.8); MONO % 11.9 % (0.0-10.0); NEUT # 2.8 K/uL (1.8-7.0); NEUT % 50.3 % (50.0-75.0); NRBC % 0.1 % (0.0-2.0); RBC 4.85 Mil/uL (4.40-5.90); RED CELL DISTRIBUTION WIDTH 14.2 % (11.5-14.5); WHITE BLOOD COUNT 5.6 K/uL (4.8-10.8)
[2018-12-30 08:43] LABS: ALB/GLOB RATIO 1.4 (1.0-2.1); ALBUMIN 4.1 g/dL (3.5-5.0)
--- NOTE | 2018-12-30 09:29 | CARD ---
APPROVED REPORT Date of service: 12/28/2018 EXAM: Two-dimensional and M-mode echocardiogram with Doppler and color Doppler. INDICATION Dizziness and Vertigo Chest Pain CAD, CABG 2013 RISK FACTORS Hypertension Diabetes 2D DIMENSIONS IVSd1.0 (0.7-1.1cm)Aortic Root (2D)2.7 (2.0-3.7cm) LVDd4.5 (3.9-5.9cm)PWd1.2 (0.7-1.1cm) LA Kmgzhz22 (18-58mL)LVDs3.2 (2.5-4.0cm) FS (%) 28.4 %LVEF (%)70.0 (>50%) LVEF (Norton's)74.18 %IVC0.00 cm M-Mode DIMENSIONS Left Atrium (MM)3.95 (2.5-4.0cm)IVSd0.61 (0.7-1.1cm) Aortic Root3.10 (2.2-3.7cm)LVDd5.44 (4.0-5.6cm) Aortic Cusp Exc.1.95 (1.5-2.0cm)PWd0.73 (0.7-1.1cm) FS (%) 47 %LVDs2.85 (2.0-3.8cm) LVEF (%)73 (>50%) Mitral Valve MV E Djhckiry82.7cm/sMV A Xxmxxglk44.5cm/sE/A ratio0.9 TDI Lateral E' Peak V9.19cm/sMedial E' Peak V7.13cm/sE/Lateral E'7.7 E/Medial E'9.9 Tricuspid Valve TR Peak Welpymog682wh/sTR Peak Gr.11lbNkCZXK78cbTj <Conclusion> Left ventricle: thickness: normal; size: normal; overall ejection fraction: 65%: diastolic filling pressures: normal Mitral valve: annulus: normal: leaflets: normal: excursion: normal; no significant trans-mitral gradient: no significant incompetence: left atrium: normal Aortic valve: leaflets: normal: excursion: normal; no significant trans-aortic gradient: No significant incompetence: aortic root: normal Right sided Structures: Pulmonary valve: normal; no significant incompetence; Tricuspid valve: normal; no significant incompetence: Intra-cardiac hemodynamics: pulmonary systolic pressures: 33 mmHg; central venous pressures: normal No pericardial effusion
[2018-12-30] MEDS ORDERED: Sodium Chloride 0.9% 1,000 ML IV SCH (09:45)
--- NOTE | 2018-12-30 09:45 | CP.PCM.DIS ---
<Fartun Alonso - Last Filed: 12/30/18 13:40> Provider - Provider Date of Admission: 12/27/18 23:32 Attending physician: Ioana Hilario DO Primary care physician: Jamilah Alvarado Consults: 12/28/18 07:39 Cardiology Consult Routine Comment: Consulting Provider: Dhaval Ayers Consulting Physician: Dhaval Ayers Reason for Consult: chest pain, dizziness, abnormal stress test Time Spent in preparation of Discharge (in minutes): 45 Diagnosis - Discharge Diagnosis (1) CAD (coronary artery disease) Status: Chronic Priority: High (2) T2DM (type 2 diabetes mellitus) Status: Chronic Priority: Medium (3) Dyslipidemia Status: Chronic Priority: Medium (4) HTN (hypertension) Status: Chronic Priority: Medium (5) Tobacco use Status: Chronic Priority: Medium Hospital Course - Lab Results Lab Results: Most Recent Lab Values WBC 5.6 K/uL (4.8-10.8) 12/30/18 07:55 RBC 4.85 Mil/uL (4.40-5.90) 12/30/18 07:55 Hgb 13.9 g/dL (12.0-18.0) 12/30/18 07:55 Hct 41.0 % (35.0-51.0) 12/30/18 07:55 MCV 84.4 fL (80.0-94.0) 12/30/18 07:55 MCH 28.6 pg (27.0-31.0) 12/30/18 07:55 MCHC 33.9 g/dL (33.0-37.0) 12/30/18 07:55 RDW 14.2 % (11.5-14.5) 12/30/18 07:55 Plt Count 252 K/uL (130-400) 12/30/18 07:55 MPV 8.9 fL (7.2-11.7) 12/30/18 07:55 Neut % (Auto) 50.3 % (50.0-75.0) 12/30/18 07:55 Lymph % (Auto) 34.6 % (20.0-40.0) 12/30/18 07:55 Dixon % (Auto) 11.9 % (0.0-10.0) H 12/30/18 07:55 Eos % (Auto) 2.7 % (0.0-4.0) 12/30/18 07:55 Baso % (Auto) 0.5 % (0.0-2.0) 12/30/18 07:55 Neut # (Auto) 2.8 K/uL (1.8-7.0) 12/30/18 07:55 Lymph # (Auto) 1.9 K/uL (1.0-4.3) 12/30/18 07:55 Dixon # (Auto) 0.7 K/uL (0.0-0.8) 12/30/18 07:55 Eos # (Auto) 0.2 K/uL (0.0-0.7) 12/30/18 07:55 Baso # (Auto) 0.0 K/uL (0.0-0.2) 12/30/18 07:55 PT 12.6 SECONDS (9.7-12.2) H 12/27/18 20:22 INR 1.2 12/27/18 20:22 APTT 34 SECONDS (21-34) 12/27/18 20:22 D-Dimer, Quantitative 233 ng/mlDDU (0-243) 12/27/18 20:22 Sodium 133 mmol/L (132-148) 12/30/18 07:55 Potassium 4.8 mmol/L (3.6-5.2) 12/30/18 07:55 Chloride 98 mmol/L (98-107) 12/30/18 07:55 Carbon Dioxide 30 mmol/L (22-30) 12/30/18 07:55 Anion Gap 11 (10-20) 12/30/18 07:55 BUN 23 mg/dL (9-20) H 12/30/18 07:55 Creatinine 1.6 mg/dL (0.8-1.5) H 12/30/18 07:55 Est GFR ( Amer) 53 12/30/18 07:55 Est GFR (Non-Af Amer) 44 12/30/18 07:55 POC Glucose (mg/dL) 227 mg/dL (65-110) H 12/29/18 00:12 Random Glucose 270 mg/dL (75-110) H 12/30/18 07:55 Hemoglobin A1c 8.0 % (4.2-6.5) H D 12/28/18 03:38 Calcium 10.0 mg/dl (8.6-10.4) 12/30/18 07:55 Phosphorus 2.9 mg/dL (2.5-4.5) 12/30/18 07:55 Magnesium 1.8 mg/dL (1.6-2.3) 12/30/18 07:55 Total Bilirubin 0.4 mg/dL (0.2-1.3) 12/30/18 07:55 AST 23 U/L (17-59) 12/30/18 07:55 ALT 12 U/L (21-72) L 12/30/18 07:55 Alkaline Phosphatase 60 U/L (38-126) 12/30/18 07:55 Total Creatine Kinase 67 U/L (55-170) 12/28/18 09:46 CK-MB (Mass) 0.42 ng/mL (0.0-3.38) 12/28/18 09:46 Troponin I < 0.0120 ng/mL (0.00-0.120) 12/28/18 09:46 NT-Pro-B Natriuret Pep 56.4 pg/mL (0-900) 12/28/18 09:46 Total Protein 7.1 g/dL (6.3-8.3) 12/30/18 07:55 Albumin 4.1 g/dL (3.5-5.0) 12/30/18 07:55 Globulin 3.0 gm/dL (2.2-3.9) 12/30/18 07:55 Albumin/Globulin Ratio 1.4 (1.0-2.1) 12/30/18 07:55 Triglycerides 123 mg/dL (0-149) D 12/28/18 03:38 Cholesterol 166 mg/dL (0-199) 12/28/18 03:38 LDL Cholesterol Direct 116 mg/dL (0-129) 12/28/18 03:38 HDL Cholesterol 35 mg/dL (30-70) 12/28/18 03:38 Free T4 1.06 ng/dL (0.78-2.19) 12/28/18 09:20 TSH 3rd Generation 7.14 mIU/L (0.46-4.68) H 12/28/18 03:38 Urine Color Yellow (YELLOW) 12/27/18 21:02 Urine Clarity Clear (Clear) 12/27/18 21:02 Urine pH 5.0 (5.0-8.0) 12/27/18 21:02 Ur Specific Aiken 1.020 (1.003-1.030) 12/27/18 21:02 Urine Protein Negative mg/dL (NEGATIVE) 12/27/18 21:02 Urine Glucose (UA) 3+ mg/dL (Normal) H 12/27/18 21:02 Urine Ketones Negative mg/dL (NEGATIVE) 12/27/18 21:02 Urine Blood Negative (NEGATIVE) 12/27/18 21: Urine Nitrate Negative (NEGATIVE) 12/27/18 21: Urine Bilirubin Negative (NEGATIVE) 12/27/18 21: Urine Urobilinogen Normal mg/dL (0.2-1.0) 12/27/18 21:02 Ur Leukocyte Esterase Neg Priyank/uL (Negative) 12/27/18 21:02 Urine WBC (Auto) 1 /hpf (0-5) 12/27/18 21:02 Urine RBC (Auto) 2 /hpf (0-3) 12/27/18 21:02 Influenza Typ A,B (EIA) Negative for flu a/b (NEGATIVE) 12/27/18 20:22 - Hospital Course Hospital Course: 63 year old Vietnamese speaking male with PMHx of CAD s/p CABG 2013, HTN, HLD, DM who presents to ED for severe dizziness/room spinning sensation for the past 2 days. Dizziness came on suddenly and has been worsening. Dizziness is so severe that he has difficulty walking. Nothing makes the dizziness better or worse. Patient reports sharp left sided chest pain (non-radiating) and shortness of breath that started with the dizziness, but have since resolved. He also states he's had a cough with green sputum and myalgias for the last few days. Patient denies fever, chills, nausea, vomiting, rhinorrhea, ringing in the ears, focal weakness, numbness, tingling, slurred speech or confusion. Patient was admitted to chest pain to rule out ACS as he has a history of CABG as well as abnormal stress test. ARVIN were negative x3. BNP 56. EKG showed sinus tachycardia, no ST elevation. Cardiology was consulted. Patient had echo that showed EF 65%, diastolic function normal. Patient underwent stress test and it was normal. He was monitored on telemetry- no events observed. Patient was continued on home medications for CAD, T2DM, HTN, and HLD. DON (creatinine 1.6) on 12/30- patient given IVF. Head CT was done for dizziness- no acute pathology. Upon discharge, patient denied chest pain and dizziness. His vitals and labs were stable. He will follow-up with his primary and cardiology as an outpatient. Discharge Exam - Head Exam Head Exam: ATRAUMATIC, NORMAL INSPECTION, NORMOCEPHALIC - Eye Exam Eye Exam: EOMI, Normal appearance - ENT Exam ENT Exam: Mucous Membranes Moist - Neck Exam Neck exam: Normal Inspection - Respiratory Exam Respiratory Exam: Clear to PA & Lateral, NORMAL BREATHING PATTERN, UNREMARKABLE - Cardiovascular Exam Cardiovascular Exam: RRR, +S1, +S2 - GI/Abdominal Exam GI & Abdominal Exam: Soft, Unremarkable. absent: Distended, Tenderness - Extremities Exam Extremities exam: normal inspection, pedal pulses present - Back Exam Back exam: NORMAL INSPECTION - Neurological Exam Neurological exam: Alert, CN II-XII Intact, Normal Gait, Oriented x3 - Psychiatric Exam Psychiatric exam: Normal Affect, Normal Mood - Skin Skin Exam: Dry, Normal Color, Warm Discharge Plan - Discharge Medications Prescriptions: Albuterol HFA [Ventolin HFA 90 mcg/actuation (8 g)] 1 puff IH Q6H PRN #1 inhaler PRN Reason: Shortness Of Breath RX: MetFORMIN [glucoPHAGE] 1,000 mg PO BID #60 tab - Follow Up Plan Condition: GOOD Disposition: HOME/ ROUTINE Patient education suggested?: Yes Instructions: Diabetes Exchange Diet, Diabetes Diet , Chest Pain (DC), Coronary Heart Disease (DC), Dizziness, Nonvertigo, (DC), Albuterol, Metformin Additional Instructions: Follow-up with your primary care physician, Dr. Sharp, within 3-5 days of discharge. Follow-up with expeller operator, Dr. Ayers, within 1 week of discharge. Take all medications as prescribed: Aspirin (Aspirin Chewable) 81 mg daily Carvedilol (Coreg) 3.125 mg twice daily Clopidogrel Bisulfate (Plavix) 75 mg daily Fenofibrate (Tricor) 145 mg PO nightly Gabapentin (Neurontin) 300 mg PO three times a day Glipizide (Glucotrol) 5 mg PO before breakfast Isosorbide Mononitrate (Imdur Er) 30 mg PO daily Lisinopril (Zestril) 2.5 mg PO daily Metformin 1000 mg twice daily Rvfxc-1-Llwu Ethyl Esters (Lovaza) 1 gm daily Ranolazine (Ranexa) 500 mg teice daily Rosuvastatin Calcium (Crestor) 10 mg nightly Sitagliptin Phosphate (Januvia) 25 mg daily Ventolin inhaler 1 puff every 6 hours as needed for shortness of breath Do not continue to smoke. If symptoms recur, return to the nearest emergency room. almarid yablugh min aleumr 88 eamana waladayh tarikh tibiyin sabiq min alfatq albitanii , hdoan marie al'adhiniu alaintiabiu , qusur alghudat aldaraqiat , wafaqr aldamu aldhy yusabib alam 'asfal albatn alty bada'at [facility]. waqalat 'iina alam albatn kanat muntashiratan fi tabieatiha [place] [facility]. kanat harakat al'amea' al'akhirat laha 'ams wakanat tabieia. yanfi 'ay damin fi albaraz. watadhakur aydana 'anaha kanat tueani min alam 'asfal alzuhr alyumnaa alty tuhalu aydana [facility] alhyn. yadhkjoe almarid 'anaha taeish fi manzil eayiliin ye aibniha wa'anaha tustakhdam kursiun mutaharik lilaltifafi. 'iinaha la taqadam 'aya shakawaa 'ukhraa fi hadha alwaqti. yanfi alsidae , aldawkhat , ailtihab almufasil alruwmatwaydiu , alkhufqan , sub , 'aerad albul. Referrals: Sue Sharp MD [Medical Doctor] - Dhaval Ayers MD [Staff Provider] - <Ioana Hilario V - Last Filed: 12/31/18 15:49> Provider - Provider Date of Admission: 12/27/18 23:32 Attending physician: Ioana Hilario DO Consults: 12/28/18 07:39 Cardiology Consult Routine Comment: Consulting Provider: Dhaval Ayers Consulting Physician: Dhaval Ayers Reason for Consult: chest pain, dizziness, abnormal stress test Hospital Course - Lab Results Lab Results: Most Recent Lab Values WBC 5.6 K/uL (4.8-10.8) 12/30/18 07:55 RBC 4.85 Mil/uL (4.40-5.90) 12/30/18 07:55 Hgb 13.9 g/dL (12.0-18.0) 12/30/18 07:55 Hct 41.0 % (35.0-51.0) 12/30/18 07:55 MCV 84.4 fL (80.0-94.0) 12/30/18 07:55 MCH 28.6 pg (27.0-31.0) 12/30/18 07:55 MCHC 33.9 g/dL (33.0-37.0) 12/30/18 07:55 RDW 14.2 % (11.5-14.5) 12/30/18 07:55 Plt Count 252 K/uL (130-400) 12/30/18 07:55 MPV 8.9 fL (7.2-11.7) 12/30/18 07:55 Neut % (Auto) 50.3 % (50.0-75.0) 12/30/18 07:55 Lymph % (Auto) 34.6 % (20.0-40.0) 12/30/18 07:55 Dixon % (Auto) 11.9 % (0.0-10.0) H 12/30/18 07:55 Eos % (Auto) 2.7 % (0.0-4.0) 12/30/18 07:55 Baso % (Auto) 0.5 % (0.0-2.0) 12/30/18 07:55 Neut # (Auto) 2.8 K/uL (1.8-7.0) 12/30/18 07:55 Lymph # (Auto) 1.9 K/uL (1.0-4.3) 12/30/18 07:55 Dixon # (Auto) 0.7 K/uL (0.0-0.8) 12/30/18 07:55 Eos # (Auto) 0.2 K/uL (0.0-0.7) 12/30/18 07:55 Baso # (Auto) 0.0 K/uL (0.0-0.2) 12/30/18 07:55 PT 12.6 SECONDS (9.7-12.2) H 12/27/18 20:22 INR 1.2 12/27/18 20:22 APTT 34 SECONDS (21-34) 12/27/18 20:22 D-Dimer, Quantitative 233 ng/mlDDU (0-243) 12/27/18 20:22 Sodium 133 mmol/L (132-148) 12/30/18 16:17 Potassium 4.8 mmol/L (3.6-5.2) 12/30/18 16:17 Chloride 97 mmol/L (98-107) L 12/30/18 16:17 Carbon Dioxide 29 mmol/L (22-30) 12/30/18 16:17 Anion Gap 11 (10-20) 12/30/18 16:17 BUN 23 mg/dL (9-20) H 12/30/18 16:17 Creatinine 1.5 mg/dL (0.8-1.5) 12/30/18 16:17 Est GFR ( Amer) 57 12/30/18 16:17 Est GFR (Non-Af Amer) 47 12/30/18 16:17 POC Glucose (mg/dL) 338 mg/dL (65-110) H 12/30/18 16:22 Random Glucose 350 mg/dL (75-110) H D 12/30/18 16:17 Hemoglobin A1c 8.0 % (4.2-6.5) H D 12/28/18 03:38 Calcium 10.4 mg/dl (8.6-10.4) 12/30/18 16:17 Phosphorus 2.9 mg/dL (2.5-4.5) 12/30/18 07:55 Magnesium 1.8 mg/dL (1.6-2.3) 12/30/18 07:55 Total Bilirubin 0.4 mg/dL (0.2-1.3) 12/30/18 07:55 AST 23 U/L (17-59) 12/30/18 07:55 ALT 12 U/L (21-72) L 12/30/18 07:55 Alkaline Phosphatase 60 U/L (38-126) 12/30/18 07:55 Total Creatine Kinase 67 U/L (55-170) 12/28/18 09:46 CK-MB (Mass) 0.42 ng/mL (0.0-3.38) 12/28/18 09:46 Troponin I < 0.0120 ng/mL (0.00-0.120) 12/28/18 09:46 NT-Pro-B Natriuret Pep 56.4 pg/mL (0-900) 12/28/18 09:46 Total Protein 7.1 g/dL (6.3-8.3) 12/30/18 07:55 Albumin 4.1 g/dL (3.5-5.0) 12/30/18 07:55 Globulin 3.0 gm/dL (2.2-3.9) 12/30/18 07:55 Albumin/Globulin Ratio 1.4 (1.0-2.1) 12/30/18 07:55 Triglycerides 123 mg/dL (0-149) D 12/28/18 03:38 Cholesterol 166 mg/dL (0-199) 12/28/18 03:38 LDL Cholesterol Direct 116 mg/dL (0-129) 12/28/18 03:38 HDL Cholesterol 35 mg/dL (30-70) 12/28/18 03:38 Free T4 1.06 ng/dL (0.78-2.19) 12/28/18 09:20 TSH 3rd Generation 7.14 mIU/L (0.46-4.68) H 12/28/18 03:38 Urine Color Yellow (YELLOW) 12/27/18 21:02 Urine Clarity Clear (Clear) 12/27/18 21:02 Urine pH 5.0 (5.0-8.0) 12/27/18 21:02 Ur Specific Aiken 1.020 (1.003-1.030) 12/27/18 21:02 Urine Protein Negative mg/dL (NEGATIVE) 12/27/18 21:02 Urine Glucose (UA) 3+ mg/dL (Normal) H 12/27/18 21:02 Urine Ketones Negative mg/dL (NEGATIVE) 12/27/18 21:02 Urine Blood Negative (NEGATIVE) 12/27/18 21:02 Urine Nitrate Negative (NEGATIVE) 12/27/18 21:02 Urine Bilirubin Negative (NEGATIVE) 12/27/18 21:02 Urine Urobilinogen Normal mg/dL (0.2-1.0) 12/27/18 21:02 Ur Leukocyte Esterase Neg Priyank/uL (Negative) 12/27/18 21:02 Urine WBC (Auto) 1 /hpf (0-5) 12/27/18 21:02 Urine RBC (Auto) 2 /hpf (0-3) 12/27/18 21:02 Influenza Typ A,B (EIA) Negative for flu a/b (NEGATIVE) 12/27/18 20:22 Attending/Attestation - Attestation I have personally seen and examined this patient.: Yes I have fully participated in the care of the patient.: Yes I have reviewed all pertinent clinical information, including history, physical exam and plan: Yes Notes (Text): This is late computer entry for 12/30/18. Patient seen, examined, discussed with medical billing clerk. Using the indemand risk control director in Vietnamese, patient denies acute complaints. Discussed with expeller operator, patient stable from standpoint upon review of myocardial stress test. We have re-emphasized to the patient the importance of tobacco cessation. he is aware if he continues to smoke, he puts himself at risk for cancer, and worsening his severity of heart disease. Patient to resume medications upon discharge and follow-up with PMD and cardiology upon discharge. This is a summary of patient's hospitalization. please refer to EMR for full detail of record. Discharge diagnoses: 1. Chest pain (resolved) History of CABG X4 History of Coronary Artery Disease Assessment/Plan * Cardiology Dr. ayers on consult help appreciated * BRUNO: 4 20% risk at 14 days of all-cause mortality, new or recurrent OK, or severe recurrent ischemia requiring urgent revascularization. Patient has sig nificant cardiac risk factors including male, smoker, hypertension, known CAD, known CABG, diabetes and recent abnormal stress test in 2017. * EKG: Sinus tachycardia * ARVIN negative x3 * Echocardiogram (12/30/18): left ventricle thickness: normal, size: normal, overall ejection fractio: 65%, diastolic filling pressures normal further findings per report * Myocardial Perfusion Stress test (12/29/18): normal myocardial perfusion study with no evidence of ischemia, normal LVEF * Exercise Stress test 2017: severely abnormal * Prior cardiac cath in 2014: LAD 100%, left circumflex 80%, rca 100%, grafts occluded, EF:5-% inferior wall hypokineese. * TSH elev (7.4), free T4 wnl * D-dimer 233 * BNP 56 * Aspirin 81mg PO daily * Plavix 75mg PO daily * Coreg 3.125mg PO BID * Ranexa 500mg PO BID * Crestor 10mg POqHS * Lisinopril 2.5mg PO daily * Imdur 30mg PO daily 2. Dizziness (resolved) Assessment/Plan * CT head: No acute intracranial abnormality * Antivert 25 mg PO Q8H 3. Cough (resolved) Assessment/Plan * CXR: increased and coarsened interstitial markenings- r/o reactive/inflammatory * Benzonatate 100 mg PO TID PRN * Tylenol 650 mg PO Q6H PRN * Duonebs PRN shortness of breathe * Counselled against smoking cessation at bedside. 4. Coronary artery disease s/p CABG, chronic Assessment/Plan * ASA 81 mg PO daily * Plavix 75 mg PO daily * Isosorbide mononitrate 30 mg PO daily * Ranexa 500 mg PO BID * Crestor 10 mg PO QHS * Lisinopril 2.5mg PO daily * Carvedilol 3.125 PO BID 5. Hypertension, chronic Assessment/Plan * Carvedilol 3.125 PO BID * Lisinopril 2.5 mg PO daily 6. Type 2 diabetes mellitus with neuropathy, chronic Assessment/Plan * A1c 8 * Hypoglycemia protocol * ISS * Januvia 25 mg PO daily * Glipizide 4 mg PO daily * Gabapentin 300 mg PO TID * Resume metformin 7. Hyperlipidemia, chronic Assessment/Plan * Lipid panel wnl * Fenofibrate 145 mg PO daily * Grindstone-3 1 g PO daily * Crestor 10 mg PO QHS 8. Ppx: * VTE: SCDs, * Heparin 5000 units sub8H for DVT ppx * GI: not indicated * Diet: Heart healthy- low consistent carb
[2018-12-30] MEDS: Omega-3-Acid Ethyl Esters 1 GM Cap PO SCH (10:49)
[2018-12-30] MEDS: Ranolazine 500 mg Extended Release Tablets PO SCH ×2 (10:49→17:20)
[2018-12-30 16:05] VITALS: BP 113/55; PULSE 90; TEMP 97.4; O2SAT 98
[2018-12-30 16:36] LABS: CALCIUM 10.4 mg/dl (8.6-10.4)
== END 2018-12-30 17:29 | disposition home or self-care (01) ==
LOC: C.ER 18:40 → C.9E 23:32 → C.6T 12-28 14:45
PROVIDERS: ADMIT Family Medicine; ATTEND Hospitalist
DX: R07.89 Other chest pain (principal); R42 Dizziness and giddiness; R05 Cough; F17.210 Nicotine dependence, cigarettes, uncomplicated; I10 Essential (primary) hypertension; E78.5 Hyperlipidemia, unspecified; E78.00 Pure hypercholesterolemia, unspecified; E11.40 Type 2 diabetes mellitus with diabetic neuropathy, unspecified; I25.10 Atherosclerotic heart disease of native coronary artery without angina pectoris; Z79.02 Long term (current) use of antithrombotics/antiplatelets; Z79.82 Long term (current) use of aspirin; Z79.84 Long term (current) use of oral hypoglycemic drugs; Z83.3 Family history of diabetes mellitus; Z95.1 Presence of aortocoronary bypass graft
CPT/HCPCS: 36415; 70450; 71046; 78452; 80048; 80053; 80061; 81001; 82948; 83036; 83735; 83880; 84100; 84439; 84443; 84484; 85025; 85378; 85610; 85730; 87804; 93017; 93306; 94640; 99285; A9502; G0378; J1644; J2785; J7040